=== PATIENT | male | born 1940 | race Caucasian/White ===

== ENCOUNTER → 2018-09-28 10:57 | Outpatient (CLI) | payer MEDICARE, OTHER, SELFPAY ==
--- NOTE | 2018-09-28 11:07 | EKG12_ITS ---
Test Reason : PRE OP Blood Pressure : / mmHG Vent. Rate : 058 BPM Atrial Rate : 058 BPM P-R Int : 196 ms QRS Dur : 128 ms QT Int : 442 ms P-R-T Axes : -22 -63 074 degrees QTc Int : 433 ms Sinus bradycardia Left axis deviation Left ventricular hypertrophy with QRS widening Abnormal ECG Confirmed by ALEJANDRA SANABRIA, LISA ([id number]), electronic news gathering editor SRAVANTHI LEWIS ([id number] on 09/29/2018 1:54:28 PM Referred By: Hallie Andrade Confirmed By:LISA ROBERTS MD
== END ==
PROVIDERS: Family Provider Student in an Organized Health Care Education/Training Program; PCP Student in an Organized Health Care Education/Training Program; Referring Provider Nurse Practitioner Adult Health; Visit Provider Nurse Practitioner Adult Health
DX: Z01.812 Encounter for preprocedural laboratory examination (principal)
CPT/HCPCS: 93005

== ENCOUNTER 2019-07-09 23:25 | Inpatient (IN) | payer MEDICARE, OTHER, SELFPAY ==
[2019-07-09 22:52] VITALS: BMI 29.2
[2019-07-09 22:53] VITALS: BP 159/60; PULSE 59; RESP 18; TEMP 36.5; O2SAT 94
[2019-07-09 23:10] VITALS: BMI 29.2
[2019-07-09] MEDS: Morphine 2 MG/ML Syringe IV (23:34)
[2019-07-09] MEDS: Ondansetron 4 MG/2 ML Vial IV (23:34)
[2019-07-09] MEDS: 0.9% Normal Saline 1,000 ML 100 ML IV (23:35)
[2019-07-10] MEDS: Ketorolac 15 MG/ML Vial IV ×2 (02:23→20:17)
[2019-07-10 04:49] VITALS: BP 148/70; PULSE 77; RESP 16; TEMP 36.8; O2SAT 97
--- NOTE | 2019-07-10 06:00 | EKG12_ITS ---
Test Reason : AM EKG Blood Pressure : / mmHG Vent. Rate : 065 BPM Atrial Rate : 065 BPM P-R Int : 206 ms QRS Dur : 128 ms QT Int : 440 ms P-R-T Axes : 009 -54 076 degrees QTc Int : 457 ms Normal sinus rhythm Left axis deviation Incomplete left bundle branch block Confirmed by ALEJANDRA SANABRIA, LISA ([id number]), restaurant expeditor ALBERTO ROCHE ([id number]) on 07/13/2019 10:12:45 AM Referred By: MIKAYAL Confirmed By:LISA ROBERTS MD
[2019-07-10 06:50] LABS: Absolute Lymphocyte Count 0.85 X10^3/uL (0.83-4.51); Absolute Neutrophil Count 9.9 X10^3/uL (2.0-7.7); Basophil# 0.03 X10^3/uL; Basophil% 0.3 % (0-1); Eosinophil# 0.04 X10^3/uL; Eosinophils% 0.4 % (0-5); Hematocrit 35.2 % (40-54); Hemoglobin 11.4 g/dL (13.0-16.5); Lymphocyte # 0.85 X10^3/ul (4.0); Lymphocyte % 7.5 % (19-41); Mean Corp Hgb Conc 32.4 g/dL (32-36); Mean Corpuscular Hgb 30.4 pg (27.0-32.0); Mean Corpuscular Volume 93.9 fL (80-94); Mean Platelet Vol. 11.3 fl (6.2-12.0); Monocyte# 0.54 X10^3/uL; Monocyte% 4.8 % (0-10); NRBC Flagged by Analyzer 0 % (0-5); Neutrophil # 9.85 X10^3/uL (2.7-7.7); Neutrophil % 86.7 % (47-70); Platelet Count 143 K/mm3 (150-450); RBC Distribution Width CV 13.2 % (11.6-14.6); RBC Distribution Width SD 45.5 fl (35.1-43.9); Red Blood Count 3.75 M/mm3 (4.6-6.2); White Blood Count 11.3 K/mm3 (4.4-11.0)
[2019-07-10 07:12] LABS: Anion Gap 5 (5-15); BUN 24 mg/dL (7-18); BUN/Creat Ratio 13.4 RATIO (10-20); Calcium,Total 8.4 mg/dL (8.5-10.1); Chloride 112 mmol/L (98-107); Creatinine, Serum 1.79 mg/dL (0.70-1.30); EST Glomerular Filtration Rate 39 mL/min (>60); Est Glom Filt Rate - Afr Amer 47 mL/min (>60); Estimated Creatinine Clearance 33.46 ml/min; Glucose 119 mg/dL (74-106); Potassium 4.3 mmol/L (3.5-5.1); Sodium Level 142 mmol/L (136-145)
--- NOTE | 2019-07-10 08:02 | PCM.HP.STD ---
Problem List (1) Kidney stone on right side Status: Acute History of Present Illness Date of Admission: 07/09/19 Chief Complaint: right obstructing kidney stone The patient is a 78 year old male with h/o stone presented with a 9mm righ kidney stone at [facility] admitted for pain control. and nausea and vomiting. Past Medical History Medical History: Medical History (Last Updated 07/10/19 @ 08:12 by Scott Barber MD) Acid reflux disease K21.9 Heart disease I51.9 Hypercholesteremia E78.00 Peripheral vascular disease I73.9 Dr Mas - [facility] TIA (transient ischemic attack) G45.9 Hypertension I10 Allergies No Known Allergies Allergy (Verified 07/09/19 23:08) Home Medications: Ambulatory Orders Medication Instructions Recorded Amlodipine Besylate [Norvasc] 5 mg PO DAILY 07/09/19 Atorvastatin Calcium [Lipitor] 80 mg PO QHS 07/09/19 Carvedilol [Coreg] 3.125 mg PO BID 07/09/19 Cholecalciferol (Vitamin D3) 1 tab PO DAILY 07/09/19 [D3-50] Clopidogrel Bisulfate [Clopidogrel] 75 mg PO DAILY 07/09/19 Fenofibrate,Micronized 130 mg PO QHS 07/09/19 [Fenofibrate] Losartan Potassium [Cozaar] 100 mg PO DAILY 07/09/19 Metoclopramide [Metoclopramide HCl] 5 mg PO BID 07/09/19 Pantoprazole Sodium [Protonix] 40 mg PO DAILY 07/09/19 Ranitidine [Zantac] 150 mg PO DAILY 07/09/19 Tamsulosin HCl [Flomax] 0.4 mg PO 1700 07/09/19 Surgical History: angioplasty - femoral stent, heart stent, carotid surgery x2, cholecystectomy, herniorrhaphy, tonsillectomy, - - lithotripsy Psychiatric History: No pertinent psych hx - vasectomy, circumcision Lives: Spouse/ Significant Other Smoking Status: Current every day smoker Tobacco Use: Non-smoker, Pipe Alcohol: None Drugs: None - *Family History Maternal History Items: Heart Disease Paternal History Items: Heart Disease Review of Systems Constitutional: Denies: Chills, Fever, Weight Change HEENT: Denies: Head Aches, Sinus Congestion, Sinus Drainage Cardiovascular: Denies: Chest Pain, Claudication, Chest Pressure, Chest Tightness Respiratory: Denies: Cough, Hemoptysis, Shortness of Breath Gastrointestinal: Reports: Abdominal Pain, Diarrhea. Denies: Constipation Genitourinary: Reports: Frequency. Denies: Dysuria, Hematuria, Hesitancy, Incontinence, Nocturia, Retention, Urgency Skin: Denies: Rash, Wounds Neurological: Denies: Balance problems, Double vision, Change in Speech, Difficulty swallowing, Seizures Psychiatric: Denies: Anxiety, Depression Hematologic/ Lymphatic: Denies: Adenopathy, Hx of blood clot, Hx of blood transfusion VTE Information - Inpt Only VTE Present on Admission: No VTE Mechan Device Prophylaxis: SCD's Patient Problems: Active and Suspected Problems Kidney stone on right side (Acute) - Physical Exam Vitals/I&O's: Vital Signs Temp Pulse Resp BP Pulse Ox 98.3 F 77 16 148/70 H 97 07/10/19 04:49 07/10/19 04:49 07/10/19 04:49 07/10/19 04:49 07/10/19 04:49 Oxygen Delivery Method Room Air Weight: 89.7 kg Body Mass Index (BMI) 29.2 Intake and Output for Last 24 Hours 07/08/19 07/09/19 07/10/19 23:59 23:59 23:59 Output Total 350 / 350 Balance -350 / -350 General: Alert, Oriented x3 HEENT: Atraumatic Oral: Moist Mucosa Neck: Supple, No JVD, Negative Carotid Bruits Lungs: Clear to auscultation, Normal air movement Cardiovascular: Regular rate, Regular Rhythm Abdomen: Bowel Sounds Present, Soft, Obese Extremities: No clubbing, No cyanosis, No edema Skin: No rashes Musculoskeletal: No Tenderness to Palpation of Joints or Extremities, No Muscle Wasting Neurological: Cranial nerves II-XII grossly intact Psych/Mental Status: Normal Affect Laboratory Results 07/10/19 06:05: WBC 11.3 H, RBC 3.75 L, Hgb 11.4 L, Hct 35.2 L, MCV 93.9, MCH 30.4, MCHC 32.4, RDW Std Deviation 45.5 H, RDW Coeff of He 13.2, Plt Count 143 L, MPV 11.3, Immature Gran % (Auto) 0.300, Neut % (Auto) 86.7 H, Lymph % (Auto) 7.5 L, [place] % (Auto) 4.8, Eos % (Auto) 0.4, Baso % (Auto) 0.3, Absolute Neuts (auto) 9.9 H, Absolute Lymphs (auto) 0.85, Nucleated RBC % 0 07/10/19 06:05: Sodium 142, Potassium 4.3, Chloride 112 H, Carbon Dioxide 25.0, Anion Gap 5, BUN 24 H, Creatinine 1.79 H, Estim Creat Clear Calc 33.46, Est GFR (MDRD) Af Amer 47 L, Est GFR (MDRD) Non-Af 39 L, BUN/Creatinine Ratio 13.4, Glucose 119 H, Calcium 8.4 L Current Medications Amlodipine Besylate (Norvasc) 5 mg PO DAILY [facility] Atorvastatin Calcium (Lipitor) 80 mg PO QHS [facility] Carvedilol (Coreg) 3.125 mg PO BID [facility] Famotidine (Pepcid) 20 mg PO DAILY [facility] Fenofibrate (Tricor) 145 mg PO QHS [facility] Sodium Chloride () 1,000 mls @ 100 mls/hr IV .Q10H [facility] Last Admin: 07/09/19 23:35 Dose: 100 mls/hr Documented by: Ketorolac Tromethamine (Toradol) 15 mg IV Q6H PRN PRN Stop: 07/14/19 23:22 Last Admin: 07/10/19 02:23 Dose: 15 mg Documented by: Losartan Potassium (Cozaar) 100 mg PO DAILY [facility] Metoclopramide HCl (Metoclopramide Hcl) 5 mg PO BID [facility] Morphine Sulfate () 2 mg IV Q2H PRN PRN Last Admin: 07/09/19 23:34 Dose: 2 mg Documented by: Non-Formulary Medication (Cholecalciferol (Vitamin D3) [D3-50]) 1 tab PO DAILY [facility] Ondansetron HCl (Zofran) 4 mg IV Q6H PRN PRN PRN Reason: NAUSEA Last Admin: 07/09/19 23:34 Dose: 4 mg Documented by: Pantoprazole Sodium (Protonix) 40 mg PO DAILY [facility] Tamsulosin HCl (Flomax) 0.4 mg PO 1700 [facility] Assessment/Plan All Active Problems Kidney stone on right side (Acute) 78 yo male with multiple medical problems. at admitted for pain control. plan for stent on right side. then discharge to home plan for outpatient lithotripsy once off plavix for 7 days.
[2019-07-10] MEDS: Morphine 4 MG/ML Syringe IV ×2 (08:30→18:39)
[2019-07-10] MEDS: amLODIPine 5 MG Tablet PO (08:37)
[2019-07-10] MEDS: Metoclopramide 5 MG TABLET PO ×2 (08:38→22:23)
[2019-07-10] MEDS: Famotidine 20 MG Tablet PO (08:38)
[2019-07-10] MEDS: Pantoprazole Sodium 40 MG Tablet PO (08:38)
[2019-07-10] MEDS: Carvedilol 3.125 MG TABLET PO ×2 (08:39→20:32)
[2019-07-10] MEDS: Losartan Potassium 100 MG Tablet PO (08:41)
[2019-07-10 08:47] VITALS: BP 173/68; PULSE 106; RESP 20; TEMP 37; O2SAT 93
[2019-07-10] MEDS: HYDROcodone Bitartrate/Apap 5/325 Tablet PO ×2 (09:38→15:39)
[2019-07-10] MEDS: 0.9% Normal Saline 1,000 ML 100 ML IV ×2 (09:38→18:42)
[2019-07-10 15:36] VITALS: BP 185/82; PULSE 91; RESP 18; TEMP 37.1; O2SAT 92
[2019-07-10 17:04] VITALS: BP 155/52; PULSE 81
[2019-07-10] MEDS: Tamsulosin HCl 0.4 MG Capsule PO (17:05)
[2019-07-10] MEDS: CLARIFY ORDER 1 EACH NOTE (17:06)
[2019-07-10 20:38] VITALS: BP 170/70; PULSE 87; RESP 16; TEMP 37.3; O2SAT 95
[2019-07-10 20:40] VITALS: O2SAT 95
[2019-07-10] MEDS: Fenofibrate 145 MG Tablet PO (22:23)
[2019-07-10] MEDS: Atorvastatin Calcium 80 MG Tablet PO (22:23)
[2019-07-11] VITALS (15 sets, daily range): BP systolic 134–209; BP diastolic 52–97; PULSE 57–119; RESP 16–24; TEMP 36.3–38.8; O2SAT 90–97; BMI 29.2
[2019-07-11] MEDS: HYDROcodone Bitartrate/Apap 5/325 Tablet PO (02:19)
[2019-07-11] MEDS: 0.9% Normal Saline 1,000 ML 100 ML IV ×2 (04:15→15:02)
[2019-07-11] MEDS: 0.9% Saline Lock 10 ML Syringe IV ×3 (08:36→10:24)
[2019-07-11] MEDS: Losartan Potassium 100 MG Tablet PO (10:00)
--- NOTE | 2019-07-11 10:00 | CASEMGMT ---
RN CM Face to Face with patient for initial transition planning/care coordination assessment. RN CM introduced self and role at [facility]. Patient sitting in chair, alert and oriented, significant other at bedside. Patient willing to participate in assessment and is able to answer all questions appropriately. Care providers, pharmacy, and demographics verified. Patient wishes to discharge home, denies need for home health at this time. Patient states he has no further needs or concerns at this time. CM to follow for discharge planning needs that may arise. PCP: Jose Specialists: Newton, bankruptcy attorney, Betty; Eve, GI Surgeon; Chace, cardiovascular; Preferred Pharmacy: [facility] Insurance: [facility] Prescription Benefit: yes Living Will/HPOA: yes, daughter Crystal Bender LNOK: daughter, hayde other Living Arrangements: Patient lives with significant other in multi story home, patient is able to ambulate stairs, independent at home. Transportation: self, significant other DME/HHC: Patient denies any DME or previous HHC Disposition Plan: Patient to discharge home with family support and follow-up plans in place. Adele FAUSTN, RN, CM
[2019-07-11] MEDS: Ketorolac 15 MG/ML Vial IV (10:23)
[2019-07-11] MEDS: Pantoprazole Sodium 40 MG Tablet PO (11:09)
[2019-07-11] MEDS: amLODIPine 5 MG Tablet PO (11:09)
[2019-07-11] MEDS: Famotidine 20 MG Tablet PO (11:09)
--- NOTE | 2019-07-11 11:52 | PCM.DC ---
- Discharge Diagnoses Current Active Problems: Current Active and Chronic Problems (Last Updated 07/10/19 @ 08:13 by Scott Barber MD) Kidney stone on right side (Acute) Heart disease (Acute) Dr Glez - [facility] Reason(s) for Visit for Discharge Instructions: s/p laser of right kidney stone and stent You will use the following diet at home:: Regular Your food should be the consistency of: Regular Discharge Activity: Return to Normal Activity, May not drive while taking narcotic pain medications. Call your doctor if you observe: Fever of 101 or Higher Allergies/Adverse Reactions: Allergies No Known Allergies Allergy (Verified 07/09/19 23:08) Medications to take at Discharge Amlodipine Besylate [Norvasc] 5 mg PO DAILY 07/09/19 Atorvastatin Calcium [Lipitor] 80 mg PO QHS 07/09/19 Carvedilol [Coreg (Beta Grant)] 3.125 mg PO BID 07/09/19 Cholecalciferol (Vitamin D3) [D3-50] 1 tab PO DAILY 07/09/19 Clopidogrel Bisulfate [Clopidogrel] 75 mg PO DAILY 07/09/19 Fenofibrate,Micronized [Fenofibrate] 130 mg PO QHS 07/09/19 Losartan Potassium [Cozaar] 100 mg PO DAILY 07/09/19 Metoclopramide [Metoclopramide HCl] 5 mg PO BID 07/09/19 Pantoprazole Sodium [Protonix] 40 mg PO DAILY 07/09/19 Ranitidine [Zantac] 150 mg PO DAILY 07/09/19 Tamsulosin HCl [Flomax] 0.4 mg PO 1700 07/09/19 Ciprofloxacin [Cipro] 500 mg PO BID #6 tab 07/11/19 Hydrocodone/Acetaminophen [Douglas 5-325 Tablet] 1 ea PO Q4H PRN PRN #14 tab 07/11/19 Primary Care Physician: Curt Garcia MD [Primary Care Provider] - Test Results: Test results from this visit will be discussed in further detail at your follow-up appointment, if applicable. Please Follow Up With: Scott Barber MD - Nurse practicioner When: Next week with Nurse Practicioner to remove stent
[2019-07-11] MEDS: Lactated Ringers 1,000 ML 100 ML IV (12:01)
--- NOTE | 2019-07-11 12:48 | PCM.OPRPT ---
Problem List (1) Kidney stone on right side Status: Acute Report of Operation Date of Procedure: 07/11/19 Pre-Operative Diagnosis: Right obstructing kidney stone Post-Operative Diagnosis: Same Surgery/Procedure Performed:: Cystoscopy, balloon dilation of the right ureter, retrograde pyelogram, interpretation fluoroscopic images, right ureteroscopy laser of stone and right stent placement. Description of Surgical Findings:: 78-year-old male taken back to the operating room at the smooth induction of general anesthesia he was placed supine on the table, went into the bladder with a 21 Eritrean rigid cystourethroscope, entire length urethra is normal sphincter was intact verumontanum was normal the prostate was normal, I then identified the trigone no tumors or stones are seen within the bladder, I then identified the right ureteral orifice cannulated this with a Glidewire advance a wire up into the kidney it was a 0.035 stiff body Glidewire. I then over the guidewire advanced a 10 cm x 10 E[place]an balloon dilator for the ureter, I then dilated the distal ureter. After doing this I left the wire in place backloaded the scope and the balloon dilator off the wire and then over the wire I went in with the flexible ureteroscope was able to get into the ureter quite easily went up into the kidney went up to the UPJ area with a stone was seen on CAT scan it was already pushed back went further up in the kidney and encountered significant amount of debris I pulled out the debris from the scope using the syringe and sent this off for culture it does look like debris did look like infection. Culture was sent off just to confirm no infection. I then inspected the kidney performed a retrograde pyelogram and interpreted fluoroscopic images and then identified some fragments in the lower pole of the right kidney these were lasered in the low pieces, and then identified a large fragment in the upper pole the right kidney and this was lasered into little tiny pieces. We used a 200 ?m laser fiber the laser settings for most of the case were 0.2 J and 16 Hz or 18 Hz. After the stones were laser little tiny pieces up to the wires to the scope backloaded the scope over the wire where it went way down the ureter no injury or trauma perforation of the ureter, and then over the wire advanced a stent stent went up into the kidney and coiled in the kidney and bladder good position pulled the wire and then drained the bladder with the cystoscope. Left a long string on the stent so the stent could be removed easily in about a week. Type of Anesthesia:: General Drains: stent right side - Admit VTE Documentation VTE Present on Admission: No VTE Mechan Device Prophylaxis: SCD's
--- NOTE | 2019-07-11 14:26 | EKG12_ITS ---
Test Reason : ARRYTH Blood Pressure : / mmHG Vent. Rate : 098 BPM Atrial Rate : 098 BPM P-R Int : 216 ms QRS Dur : 128 ms QT Int : 364 ms P-R-T Axes : 079 -53 085 degrees QTc Int : 464 ms Sinus rhythm with 1st degree A-V block with frequent Premature ventricular complexes Left axis deviation Non-specific intra-ventricular conduction block Abnormal ECG Confirmed by ALEJANDRA SANABRIA, LISA ([id number]), film and video editor SRAVANTHI LEWIS ([id number]) on 07/18/2019 1:16:39 PM Referred By: MIKAYLA Confirmed By:LISA ROBERTS MD
[2019-07-11] MEDS: Metoclopramide 5 MG TABLET PO (15:38)
[2019-07-11] MEDS: Carvedilol 3.125 MG TABLET PO (15:38)
[2019-07-11] MEDS: Tamsulosin HCl 0.4 MG Capsule PO (17:32)
[2019-07-11] MEDS: Ciprofloxacin 500 MG Tablet PO (17:45)
== END 2019-07-11 17:55 | disposition home or self-care (01) | DRG 661 ==
PROVIDERS: Anesthesiology; Admitting Provider Urology; Family Provider Student in an Organized Health Care Education/Training Program; PCP Student in an Organized Health Care Education/Training Program; Visit Provider Urology
PROC: 0TJ98ZZ Inspection of Ureter, Via Natural or Artificial Opening Endoscopic (ICD-10-PCS; CPT 52352; principal; 2019-07-11 07:20)
DX: N20.0 Calculus of kidney (principal); E78.00 Pure hypercholesterolemia, unspecified; I10 Essential (primary) hypertension; I73.9 Peripheral vascular disease, unspecified; K21.9 Gastro-esophageal reflux disease without esophagitis; I51.9 Heart disease, unspecified; Z86.73 Personal history of transient ischemic attack (TIA), and cerebral infarction without residual deficits
CPT/HCPCS: 36415; 76000; 80048; 85025; 87077; 87086; 87088; 87186; 93005; J7030; J7120; A4216; C1769; C2617; J2405

== ENCOUNTER 2019-09-28 14:17 | Inpatient (IN) | payer MEDICARE, OTHER, SELFPAY ==
[2019-07-11 11:13] VITALS: BMI 29.2
[2019-09-28] VITALS (7 sets, daily range): BP systolic 120–157; BP diastolic 52–62; PULSE 68–96; RESP 16–21; TEMP 36.2–36.6; O2SAT 96–99; BMI 27.6
--- NOTE | 2019-09-28 14:28 | PCM.HP.STD ---
Problem List (1) Coronary artery disease Status: Chronic (2) Acute kidney injury on CKD stage III Status: Acute (3) Acute gastroenteritis Status: Acute (4) Kidney stone on right side Status: Chronic (5) Heart disease Status: Chronic Comment: Dr Newton Hernández History of Present Illness Date of Admission: 09/28/19 Chief Complaint: Diarrhea, acute kidney injury The patient is a 79 year old M with history of coronary artery disease status post PCI stent last one in 2010 and kidney stone is being admitted directly in PCU from [place] [facility] for acute kidney injury. Patient is having diarrhea started about Thursday about 5 days ago, liquid watery consistency every 2-3 hours as per the patient. Patient denies any abdominal pain or cramps. No nausea or vomiting. Patient also had low-grade fever as per the 5 days ago. Denies food poisoning. Patient has anuria; he did not pass urine for about 2 days He was last admitted in June 2019 for right obstructive ureteric stone and had balloon dilatation of right ureter, right ureteroscopy laser of stone and right stent placement. Patient Cipro for 5 days during that [] Patient did not had coronary related event since 2010 and denies any admission for heart failure, chest pain or pneumonia. In [place] ER his blood pressure was low in triage 87/35 which came up 111/67/61. Heart rate 70/min no hypoxia. EKG shows normal sinus rhythm at 73 bpm with left axis deviation nonspecific intraventricular block. Lab work shows sodium 138, K4.3, chloride 108, bicarb 18, glucose 108, BUN/creatinine 79/5.98, calcium 9.0. H&H 13.7/41, platelet count 222. Chest x-ray 2 views shows no acute cardiopulmonary disease. Tiny 3 mm nodular density in the right upper lobe most likely calcified granuloma. Past Medical History Past Medical History (Chronic Problems): Chronic Problems (Last Updated 07/10/19 @ 08:13 by Scott Barber MD) Kidney stone on right side (Chronic) Coronary artery disease (Chronic) Heart disease (Chronic) Dr Newton Hernández Medical History: Medical History (Last Updated 07/10/19 @ 08:13 by Scott Barber MD) Heart disease (Acute) I51.9 Dr Newton Hernández Acid reflux disease K21.9 Hypercholesteremia E78.00 Peripheral vascular disease I73.9 Dr Mas - [facility] TIA (transient ischemic attack) G45.9 Hypertension I10 Allergies No Known Allergies Allergy (Verified 07/09/19 23:08) Home Medications: Ambulatory Orders Medication Instructions Recorded Amlodipine Besylate [Norvasc] 5 mg PO DAILY 07/09/19 Atorvastatin Calcium [Lipitor] 80 mg PO QHS 07/09/19 Carvedilol [Coreg (Beta Grant)] 3.125 mg PO BID 07/09/19 Clopidogrel Bisulfate [Clopidogrel] 75 mg PO DAILY 07/09/19 Fenofibrate,Micronized 130 mg PO QHS 07/09/19 [Fenofibrate] Losartan Potassium [Cozaar] 100 mg PO DAILY 07/09/19 Metoclopramide [Metoclopramide HCl] 5 mg PO BID 07/09/19 Pantoprazole Sodium [Protonix] 40 mg PO DAILY 07/09/19 Ranitidine [Zantac] 150 mg PO DAILY 07/09/19 Tamsulosin HCl [Flomax] 0.4 mg PO 1700 07/09/19 Cholecalciferol (VIT D3) [Vitamin 1,000 unit PO DAILY 07/11/19 D] Surgical History: angioplasty - femoral stent, heart stent, carotid surgery x2, cholecystectomy, herniorrhaphy, tonsillectomy, - - lithotripsy Psychiatric History: No pertinent psych hx - vasectomy, circumcision Smoking Status: Current every day smoker - *Family History Maternal History Items: Heart Disease Paternal History Items: Heart Disease Review of Systems Constitutional: Reports: Anorexia, Chills, Fever, Weakness, Fatigue HEENT: Denies: Head Aches, Sinus Congestion, Sinus Drainage Cardiovascular: Denies: Chest Pain, Palpitations Respiratory: Denies: Cough, Shortness of breath at rest, Sputum production Gastrointestinal: Reports: Diarrhea, Nausea. Denies: Abdominal Pain, Hematemesis, Hematochezia, Vomiting Genitourinary: Reports: - - Anuria; he did not pass urine for about 2 days. Denies: Dysuria, Frequency Musculoskeletal: Denies: Joint Pain, Joint Tenderness Skin: Denies: Rash, Wounds Neurological: Denies: Numbness, Tingling, Focal weakness Psychiatric: Denies: Anxiety, Depression, Homicidal Ideations, Suicidal Ideations Hematologic/ Lymphatic: Denies: Easy Bruising, Easy Bleeding VTE Information - Inpt Only VTE Present on Admission: No VTE Mechan Device Prophylaxis: None VTE Pharm Prophylaxis ordered?: Yes Patient Problems: Active and Suspected Problems (Last Updated 07/10/19 @ 08:13 by Scott Barber MD) Acute kidney injury on CKD stage III (Acute) Acute gastroenteritis (Acute) - Physical Exam Vitals/I&O's: Body Mass Index (BMI) 29.2 General: Alert, Oriented x3, Cooperative HEENT: Atraumatic, PERRLA, EOMI, Normocephalic Neck: Supple, No JVD, Negative Carotid Bruits Lungs: Clear to auscultation, Normal air movement, No rhonchi, No wheeze, No rales Cardiovascular: Regular rate, Regular Rhythm, Normal S1, Normal S2, No murmurs Abdomen: Bowel Sounds Present, Soft, Non Tender, Non-Distended Extremities: No edema, Capillary Refill Less than 3 Seconds Skin: No rashes, No breakdown Musculoskeletal: No Tenderness to Palpation of Joints or Extremities, Arthritic Changes Neurological: Cranial nerves II-XII grossly intact, Deep Tendon Reflexes 2+/4 and Symmetrical, Neuro grossly intact Psych/Mental Status: Normal Affect, Appropriate Assessment/Plan All Active Problems (Last Updated 07/10/19 @ 08:13 by Scott Barber MD) Acute kidney injury on CKD stage III (Acute) Acute gastroenteritis (Acute) The patient is a 79 year old M with history of coronary artery disease status post PCI stent last one in 2010 and kidney stone is being admitted directly in PCU from [place] ER for acute kidney injury. Patient is having diarrhea started about Thursday about 5 days ago, liquid watery consistency every 2-3 hours as per the patient. Patient also had low-grade fever as per the 5 days ago. [] In [place] ER his blood pressure was low in triage 87/35 which came up 111/67/61. Heart rate 70/min no hypoxia. EKG shows normal sinus rhythm at 73 bpm with left axis deviation nonspecific intraventricular block. Lab work shows sodium 138, K4.3, chloride 108, bicarb 18, glucose 108, BUN/creatinine 79/5.98, calcium 9.0. H&H 13.7/41, platelet count 222. Chest x-ray 2 views shows no acute cardiopulmonary disease. Tiny 3 mm nodular density in the right upper lobe most likely calcified granuloma. 1. Acute kidney injury on CKD stage III most likely prerenal but suspicion of ATN: Patient is being admitted in PCU. Patient's prior BUN/creatinine was 22/1.45 in July 09, 2019 and 24/1.79 on July 10. With the staff scientist Dr. Vieyra. IV fluid half normal saline with bicarb 150 M EQ at 150 mils per hour. Insert Anders catheter for accurate intake and output. UA, urine culture and urine lites ordered. Kidney and bladder ultrasound ordered. Daily electrolytes and kidney function monitoring. Nephrotoxic medications including losartan and Zantac held. Discussed with the pharmacist for dose adjustment. 2. Acute gastroenteritis, exact etiology unclear: Enteric bacteriology panel, stool for C. difficile, stool for occult blood and WBC ordered. IV fluid resuscitation. Patient does not have abdominal pain or tenderness. 3. Coronary artery disease status post stents: Patient home medications Plavix, Coreg, statin, atorvastatin and amlodipine continued. Dose of atorvastatin decreased. 4. History of nephrolithiasis/ureteric stone: He was last admitted in June 2019 for right obstructive ureteric stone and had balloon dilatation of right ureter, right ureteroscopy laser of stone and right stent placement. Cipro for 5 days during that. DVT prophylaxis on heparin 5000 subcutaneous twice daily. Advanced directive/CODE STATUS/living will: Patient stated he has living will. When different options were discussed with patient and his including full code, DNR CC arrest and DNR CC, he knows he is DNR CC arrest. Patient does not want artificial life support including intubation, tube feed, ventilator and/chest compression. Total time spent in [id number] encounter in discussion of advanced directive 18 minutes. Code Visit Inpatient E&M: 31460 Init Hosp L3 Procedures: 50859 Advncd Care Plan 30 Min
--- NOTE | 2019-09-28 14:49 | US_ITS ---
HISTORY: Acute kidney injury. Anuria. 90 images. No comparison images. Findings: The right kidney measures 10.3 x 5.4 x 4.6 cm. Cortex is measured at 13 mm in thickness. Cortical contour is slightly irregular. Color Doppler imaging demonstrates normal flow to right renal parenchyma. There is no hydronephrosis or nephrolithiasis. Within the superior portion of the right kidney there is an anechoic structure with well-defined margins that measures 2 x 1.8 x 2 cm, consistent with a benign simple cyst. More inferiorly there is another anechoic structure with well-defined margins measuring 9 x 9 x 10 mm, consistent with a benign simple cyst. The left kidney measures 12.7 x 5.6 x 5.7 cm. These measurements exclude a large exophytic cyst of the left kidney. Color Doppler imaging demonstrates flow to the left renal parenchyma. The cortex is 14 mm thick. This cyst exophytic to the left kidney measures 16.6 x 10.5 cm. Another benign cyst to the left kidney measures 3.1 x 2.8 x 2.9 cm. The urinary bladder is not demonstrated. US/Kidney and Bladder IMPRESSION: Hyperechoic renal parenchyma with irregular contours suggestive of nonspecific medical renal disease. Examples of medical renal disease includes chronic ischemic nephropathy, type 2 diabetes, and NSAID abuse. No hydronephrosis. Bilateral renal cysts. The largest of these, exophytic into the left kidney, measures over 16 cm in long axis dimensions at 2013 Reported and signed by: Butch Ritter MD Electronically Signed: Butch Ritter MD at 20:12 EST Tel , Service support ,
[2019-09-28 15:06] LABS: Bacteria 0 SEEN /hpf (None Seen); Mucous, Urine 0 SEEN /hpf (<or=2+); Red Blood Cells-Urine 0 SEEN /hpf (0-5); Squamous Epithelial Cells - UA 0 SEEN /hpf (0-5)
[2019-09-28 15:28] LABS: Color, Urine Yellow (Yellow); Glucose, Dipstick Normal (Normal); Ketone-Dipstick 5 mg/dl (Negative); Leukocyte Esterase-Dipstick 500 /ul (Negative); Nitrite-Dipstick Negative (Negative); Occult Blood-Urine 25 /ul (Negative); Protein-Dipstick 30 mg/dl (Negative); Specific Gravity, Urine 1.025 (1.002-1.030); Urine Clarity Clear (Clear); Urine Urobilinogen Normal (Normal)
[2019-09-28 15:30] LABS: Urine Chloride < 10 mmol/L (Not Establ.); Urine Sodium 20 mmol/L (Not Establ.)
[2019-09-28 15:35] LABS: Bedside Glucose 80 mg/dL (70-110)
[2019-09-28 15:40] LABS: International Normalized Ratio 1.2
[2019-09-28 15:42] LABS: Urine Bilirubin Dipstick 6 mg/dL (Negative)
[2019-09-28 15:48] LABS: ALB/GLOB Ratio 0.8 RATIO (0.9-2.4); AST(SGOT) 8 U/L (15-37); Alanine Aminotransfer ALT/SGPT 15 U/L (16-61); Alkaline Phosphatase 38 U/L (45-117); Anion Gap 9 (5-15); BUN 81 mg/dL (7-18); BUN/Creat Ratio 13.6 RATIO (10-20); Calcium,Total 8.5 mg/dL (8.5-10.1); Chloride 113 mmol/L (98-107); Creatinine, Serum 5.94 mg/dL (0.70-1.30); EST Glomerular Filtration Rate 10 mL/min (>60); Est Glom Filt Rate - Afr Amer 12 mL/min (>60); Estimated Creatinine Clearance 9.92 ml/min; Globulin 3.8 g/dL (2.2-4.2); Glucose 88 mg/dL (74-106); Magnesium 1.5 mg/dL (1.6-2.6); Potassium 4.3 mmol/L (3.5-5.1); Protein, Total 6.8 g/dL (6.4-8.2); Sodium Level 138 mmol/L (136-145)
[2019-09-28 16:11] LABS: Lactic Acid 1.1 mmol/L (0.4-1.9)
[2019-09-28 16:19] LABS: Protein, Urine (Random) 95.9 mg/dL (<11.9); Protein:Creat Ratio 236 mg/g CRE (0-200)
[2019-09-28 16:45] LABS: Hyaline Cast 25-50 SEEN /lpf (0-5); White Blood Cells 10-25 SEEN /hpf (0-5)
[2019-09-28] MEDS: Tamsulosin HCl 0.4 MG Capsule PO (17:09)
[2019-09-28 19:12] LABS: Phosphorus 4.6 mg/dL (2.5-4.9)
[2019-09-28] MEDS: Heparin Injection (Vial) 5,000 UNIT/ML VIAL 5000 UNIT SC (20:13)
[2019-09-28] MEDS: Atorvastatin Calcium 40 MG Tablet PO (20:15)
[2019-09-28] MEDS: Carvedilol 3.125 MG TABLET PO (20:18)
[2019-09-28 21:01] LABS: Bedside Glucose 111 mg/dL (70-110)
[2019-09-29] VITALS (12 sets, daily range): BP systolic 121–134; BP diastolic 45–71; PULSE 64–101; RESP 14–18; TEMP 36.4–37; O2SAT 94–98
[2019-09-29 04:24] LABS: Absolute Lymphocyte Count 1.63 X10^3/uL (0.83-4.51); Absolute Neutrophil Count 4.6 X10^3/uL (2.0-7.7); Eosinophil# 0.21 X10^3/uL; Hematocrit 31.1 % (40-54); Hemoglobin 10.5 g/dL (13.0-16.5); Lymphocyte # 1.63 X10^3/ul (4.0); Lymphocyte % 22.9 % (19-41); Mean Corp Hgb Conc 33.8 g/dL (32-36); Mean Corpuscular Hgb 30.3 pg (27.0-32.0); Mean Corpuscular Volume 89.9 fL (80-94); Mean Platelet Vol. 11.5 fl (6.2-12.0); Monocyte# 0.61 X10^3/uL; Monocyte% 8.6 % (0-10); NRBC Flagged by Analyzer 0 % (0-5); Neutrophil # 4.64 X10^3/uL (2.7-7.7); Neutrophil % 65.2 % (47-70); Platelet Count 153 K/mm3 (150-450); RBC Distribution Width CV 13.3 % (11.6-14.6); Red Blood Count 3.46 M/mm3 (4.6-6.2); White Blood Count 7.1 K/mm3 (4.4-11.0)
[2019-09-29 04:52] LABS: Anion Gap 7 (5-15); BUN 87 mg/dL (7-18); BUN/Creat Ratio 17.5 RATIO (10-20); Calcium,Total 8.1 mg/dL (8.5-10.1); Chloride 109 mmol/L (98-107); Creatinine, Serum 4.98 mg/dL (0.70-1.30); EST Glomerular Filtration Rate 12 mL/min (>60); Est Glom Filt Rate - Afr Amer 15 mL/min (>60); Estimated Creatinine Clearance 11.83 ml/min; Glucose 99 mg/dL (74-106); Magnesium 1.7 mg/dL (1.6-2.6); Potassium 3.6 mmol/L (3.5-5.1); Sodium Level 140 mmol/L (136-145); Thyroid Stim Hormone (TSH) 0.48 uIU/mL (0.358-3.74)
[2019-09-29] MEDS: 0.9% Saline Lock 10 ML Syringe IV (05:52)
[2019-09-29 06:36] LABS: Bedside Glucose 89 mg/dL (70-110)
[2019-09-29] MEDS: 0.9% Normal Saline 1,000 ML 100 ML IV ×2 (07:25→17:14)
[2019-09-29] MEDS: Heparin Injection (Vial) 5,000 UNIT/ML VIAL 5000 UNIT SC ×2 (07:56→21:59)
[2019-09-29] MEDS: amLODIPine 5 MG Tablet PO (07:57)
[2019-09-29] MEDS: Pantoprazole Sodium 40 MG Tablet PO (07:57)
[2019-09-29] MEDS: Carvedilol 3.125 MG TABLET PO ×2 (07:57→21:59)
[2019-09-29] MEDS: Clopidogrel Bisulfate 75 MG Tablet PO (07:57)
--- NOTE | 2019-09-29 08:16 | PCM.PN.HOSP ---
Patient Problems: Active and Suspected Problems (Last Updated 07/10/19 @ 08:13 by Scott Barber MD) Acute kidney injury on CKD stage III (Acute) Acute gastroenteritis (Acute) Reason for Visit: Acute kidney injury. Patient also has multiple PVCs. Has history of coronary artery disease status post 2 stents Objective: Patient started to make urine. Total urine output 700 mL since admission; 400 mL since 12 AM. Patient diarrhea is also improved and had 2 bowel movements since admission. Telemetry shows multiple PVCs and one incidence of 3 beats of NSVT. Vitals/I&O's: Vital Signs Temp Pulse Resp BP Pulse Ox 97.6 F L 101 H 18 134/71 H 95 09/29/19 03:01 09/29/19 07:43 09/29/19 03:01 09/29/19 03:01 09/29/19 03:01 Oxygen Delivery Method Room Air Weight: 191 lb 12.835 oz Body Mass Index (BMI) 27.6 Intake and Output for Last 24 Hours 09/27/19 09/28/19 09/29/19 23:59 23:59 23:59 Intake Total 1771.5 / 1771.5 1220 / 1220 Output Total 705 / 705 400 / 400 Balance 1066.5 / 1066.5 820 / 820 General: Alert, Oriented x3, Cooperative HEENT: Atraumatic, PERRLA, EOMI, Normocephalic Neck: Supple, No JVD, Negative Carotid Bruits Lungs: Clear to auscultation, No rhonchi - Air entry slightly diminished in bilateral lung bases., No wheeze, No rales, Diminished, - Cardiovascular: Regular rate, Regular Rhythm, Normal S1, Normal S2, No murmurs, - - Multiple PVCs on diagnostic cardiac sonographer Abdomen: Bowel Sounds Present, Soft, Non Tender, Non-Distended Extremities: No edema, Capillary Refill Less than 3 Seconds Skin: No rashes, No breakdown Musculoskeletal: No Tenderness to Palpation of Joints or Extremities, Arthritic Changes Neurological: Cranial nerves II-XII grossly intact, Deep Tendon Reflexes 2+/4 and Symmetrical, Neuro grossly intact Psych/Mental Status: Normal Affect, Appropriate Microbiology Past 72 Hours 09/28/19 20:50 Stool C. difficile DNA Amplification - Final 09/28/19 20:50 Stool Stool Occult Blood (NORMA) - Final 09/28/19 20:50 Stool Stool Lactoferrin - Final Laboratory Results 09/28/19 14:50: Urine Creatinine 416.00 09/28/19 14:50: U Random Total Protein 95.9 H, Urine Creatinine 407.00, Protein/Creatinin Ratio 236 H 09/28/19 14:50: Ur Random Sodium 20, Urine Potassium 53.0, Urine Chloride < 10 09/28/19 14:50: Urine Color Yellow, Urine Clarity Clear, Urine pH 5.0, Ur Specific Brooks 1.025, Urine Protein 30 H, Urine Glucose (UA) Normal, Urine Ketones 5 H, Urine Occult Blood 25 H, Urine Nitrite Negative, Urine Bilirubin 6 H, Urine Urobilinogen Normal, Ur Leukocyte Esterase 500 H, Urine RBC 0 SEEN, Urine WBC 10-25 SEEN, Ur Squamous Epith Cells 0 SEEN, Urine Bacteria 0 SEEN, Hyaline Casts 25-50 SEEN, Urine Mucus 0 SEEN 09/28/19 15:05: Sodium 138, Potassium 4.3, Chloride 113 H, Carbon Dioxide 16.0 L, Anion Gap 9, BUN 81 H, Creatinine 5.94 H, Estim Creat Clear Calc 9.92, Est GFR (MDRD) Af Amer 12 L, Est GFR (MDRD) Non-Af 10 L, BUN/Creatinine Ratio 13.6, Glucose 88, Calcium 8.5, Magnesium 1.5 L, Total Bilirubin 0.50, AST 8 L, ALT 15 L, Alkaline Phosphatase 38 L, Total Protein 6.8, Albumin 3.0 L, Globulin 3.8, Albumin/Globulin Ratio 0.8 L 09/28/19 15:05: Lactic Acid 1.1 09/28/19 15:05: PT 15.0 H, INR 1.2 09/28/19 15:05: Phosphorus 4.6 09/28/19 15:29: POC Glucose 80 09/28/19 20:24: POC Glucose 111 H 09/29/19 04:10: Sodium 140, Potassium 3.6, Chloride 109 H, Carbon Dioxide 24.0, Anion Gap 7, BUN 87 H, Creatinine 4.98 H, Estim Creat Clear Calc 11.83, Est GFR (MDRD) Af Amer 15 L, Est GFR (MDRD) Non-Af 12 L, BUN/Creatinine Ratio 17.5, Glucose 99, Calcium 8.1 L, Magnesium 1.7, TSH 0.48 09/29/19 04:10: WBC 7.1, RBC 3.46 L, Hgb 10.5 L, Hct 31.1 L, MCV 89.9, MCH 30.3, MCHC 33.8, RDW Std Deviation 44.0 H, RDW Coeff of He 13.3, Plt Count 153, MPV 11.5, Immature Gran % (Auto) 0.300, Neut % (Auto) 65.2, Lymph % (Auto) 22.9, [place] % (Auto) 8.6, Eos % (Auto) 3.0, Baso % (Auto) 0.0, Absolute Neuts (auto) 4.6, Absolute Lymphs (auto) 1.63, Nucleated RBC % 0 09/29/19 06:31: POC Glucose 89 Current Medications Acetaminophen (Tylenol) 650 mg PO Q6H PRN PRN PRN Reason: Pain Score 1-3/Temp > 100.7 F Albuterol Sulfate (Ventolin Aerosols) 2.5 mg INHALATION Q2H PRN PRN PRN Reason: SOB/Wheezing Amlodipine Besylate (Norvasc) 5 mg PO DAILY [facility] Last Admin: 09/29/19 07:57 Dose: 5 mg Documented by: Atorvastatin Calcium (Lipitor) 40 mg PO QHS [facility] Last Admin: 09/28/19 20:15 Dose: 40 mg Documented by: Carvedilol (Coreg) 3.125 mg PO BID [facility] Last Admin: 09/29/19 07:57 Dose: 3.125 mg Documented by: Cholecalciferol (Vitamin D) 1,000 unit PO DAILYCM [facility] Last Admin: 09/29/19 07:58 Dose: 1,000 unit Documented by: Clopidogrel Bisulfate (Plavix) 75 mg PO DAILY [facility] Last Admin: 09/29/19 07:57 Dose: 75 mg Documented by: Glucagon () 1 mg IM .X1 PRN PRN Reason: Hypoglycemia Heparin Sodium (Porcine) (Heparin Na) 5,000 unit SC Q12 [facility] Last Admin: 09/29/19 07:56 Dose: 5,000 unit Documented by: Dextrose (Dextrose 10%-Water) 250 mls @ 999 mls/hr IV .Q16M PRN; Protocol PRN Reason: HYPOGLYCEMIA Sodium Chloride () 1,000 mls @ 100 mls/hr IV .Q10H [facility] Last Admin: 09/29/19 07:25 Dose: 100 mls/hr Documented by: Morphine Sulfate () 2 mg IV Q3H PRN PRN PRN Reason: Pain Score 4-10/10 Nitroglycerin (Nitrostat) 0.4 mg SUBLINGUAL Q5M PRN PRN Reason: CARDIAC/CHEST PAIN Nutritional Formula (Lactose Free) (Ensure Enlive) 120 ml PO 4X/DAY [facility] Last Admin: 09/29/19 07:56 Dose: 120 ml Documented by: Ondansetron HCl (Zofran) 4 mg IV Q8H PRN PRN PRN Reason: NAUSEA/VOMITING Pantoprazole Sodium (Protonix) 40 mg PO DAILY [facility] Last Admin: 09/29/19 07:57 Dose: 40 mg Documented by: Senna/Docusate Sodium (Senokot-S, Sara-Colace) 2 tablet PO BID PRN PRN Reason: Constipation Sodium Chloride () 10 - 40 ml IV UD PRN PRN Reason: SALINE FLUSH Last Admin: 09/29/19 05:52 Dose: 10 ml Documented by: Tamsulosin HCl (Flomax) 0.4 mg PO 1730 [facility] Last Admin: 09/28/19 17:09 Dose: 0.4 mg Documented by: STROKE Vital Signs/Narrative: Vital Signs Pulse 09/29/19 07:43 101 H Medical Necessity - Tobacco Use Smoking Status: Current every day smoker Tobacco Use: Pipe Assessment/Plan All Active Problems (Last Updated 07/10/19 @ 08:13 by Scott Barber MD) Acute kidney injury on CKD stage III (Acute) Acute gastroenteritis (Acute) The patient is a 79 year old M with history of coronary artery disease status post PCI stent last one in 2010 and kidney stone is being admitted directly in PCU from [place] [facility] for acute kidney injury. Patient is having diarrhea started about Thursday about 5 days ago, liquid watery consistency every 2-3 hours as per the patient. Patient also had low-grade fever as per the 5 days ago. [] In [place] [facility] his blood pressure was low in triage 87/35 which came up 111/67/61. Heart rate 70/min no hypoxia. EKG shows normal sinus rhythm at 73 bpm with left axis deviation nonspecific intraventricular block. Lab work shows sodium 138, K4.3, chloride 108, bicarb 18, glucose 108, BUN/creatinine 79/5.98, calcium 9.0. H&H 13.7/41, platelet count 222. Chest x-ray 2 views shows no acute cardiopulmonary disease. Tiny 3 mm nodular density in the right upper lobe most likely calcified granuloma. 1. Acute kidney injury, stage III on CKD stage III most likely prerenal but suspicion of ATN: Patient is being admitted in PCU. Patient's prior BUN/creatinine was 22/1.45 in July 09, 2019 and 24/1.79 on July 10. With the mill crane operator Dr. Vieyra. IV fluid half normal saline with bicarb 150 M EQ at 150 mils per hour. Insert Anders catheter for accurate intake and output. UA, urine culture and urine lites ordered. Kidney and bladder ultrasound ordered. Daily electrolytes and kidney function monitoring. Nephrotoxic medications including losartan and Zantac held. Discussed with the pharmacist for dose adjustment. 09/29/2019: Patient had total urine output about 700 mL. Dark urine in Anders catheter. Labs reviewed. UA shows WBC 10-25 cells, RBC 0, bacteria 0 LE 500, nitrite negative. Urine culture is pending. Urine lites urine protein 96, Fena 0.2%. Urine sodium 20, chloride less than 10. BUN/creatinine improved to 87/4.9. Bicarb 24, sodium 140, K3.6. Hypomagnesemia was corrected. Repeat magnesium 1.7. IV fluid changed from bicarb drip to normal saline at 100 mL/h. Monitor intake and output. Radio Personality going to see the patient. Patient does not have lower urinary tract symptoms of burning micturition/increased frequency urgency. No need for antibiotic. Wait for urine culture. CPK ordered. Renal ultrasound shows hyperechoic renal parenchyma with irregular contour suggestive of nonspecific medical renal disease. No hydronephrosis. Bilateral renal cyst. Largest exophytic cyst about 16 cm in left kidney. 2. Acute gastroenteritis, exact etiology unclear: Enteric bacteriology panel, stool for C. difficile, stool for occult blood and WBC ordered. IV fluid resuscitation. Patient does not have abdominal pain or tenderness. 09/29/2019: Patient still has bowel movement is more formed and solid. C. difficile is negative. Stool for occult blood negative. Lactoferrin is positive. Enteric bacteriology panel is pending. 3. Coronary artery disease status post stents: Patient home medications Plavix, Coreg, statin, atorvastatin and amlodipine continued. Dose of atorvastatin decreased. 4. Arrhythmia: Patient has multiple PVCs and one 3 beats of NSVT. 2D echo ordered. Obtain previous echo and other cardiac work-up from patient's reducing salon attendant Dr. Glez. 4. History of nephrolithiasis/ureteric stone: He was last admitted in June 2019 for right obstructive ureteric stone and had balloon dilatation of right ureter, right ureteroscopy laser of stone and right stent placement. Cipro for 5 days during that. DVT prophylaxis on heparin 5000 subcutaneous twice daily. Advanced directive/CODE STATUS/living will: Patient stated he has living will. When different options were discussed with patient and his including full code, DNR CC arrest and DNR CC, he knows he is DNR CC arrest. Patient does not want artificial life support including intubation, tube feed, ventilator and/chest compression. Clinical Impression(s) from Imaging Studies Renal Ultrasound 09/28/19 14:49 IMPRESSION: Hyperechoic renal parenchyma with irregular contours suggestive of nonspecific medical renal disease. Examples of medical renal disease includes chronic ischemic nephropathy, type 2 diabetes, and NSAID abuse. No hydronephrosis. Bilateral renal cysts. The largest of these, exophytic into the left kidney, measures over 16 cm in long axis dimensions Microbiology Past 72 Hours 09/28/19 20:50 Stool C. difficile DNA Amplification - Final 09/28/19 20:50 Stool Stool Occult Blood (NORMA) - Final 09/28/19 20:50 Stool Stool Lactoferrin - Final Laboratory Results 09/28/19 14:50: Urine Creatinine 416.00 09/28/19 14:50: U Random Total Protein 95.9 H, Urine Creatinine 407.00, Protein/Creatinin Ratio 236 H 09/28/19 14:50: Ur Random Sodium 20, Urine Potassium 53.0, Urine Chloride < 10 09/28/19 14:50: Urine Color Yellow, Urine Clarity Clear, Urine pH 5.0, Ur Specific Brooks 1.025, Urine Protein 30 H, Urine Glucose (UA) Normal, Urine Ketones 5 H, Urine Occult Blood 25 H, Urine Nitrite Negative, Urine Bilirubin 6 H, Urine Urobilinogen Normal, Ur Leukocyte Esterase 500 H, Urine RBC 0 SEEN, Urine WBC 10-25 SEEN, Ur Squamous Epith Cells 0 SEEN, Urine Bacteria 0 SEEN, Hyaline Casts 25-50 SEEN, Urine Mucus 0 SEEN 09/28/19 15:05: Sodium 138, Potassium 4.3, Chloride 113 H, Carbon Dioxide 16.0 L, Anion Gap 9, BUN 81 H, Creatinine 5.94 H, Estim Creat Clear Calc 9.92, Est GFR (MDRD) Af Amer 12 L, Est GFR (MDRD) Non-Af 10 L, BUN/Creatinine Ratio 13.6, Glucose 88, Calcium 8.5, Magnesium 1.5 L, Total Bilirubin 0.50, AST 8 L, ALT 15 L, Alkaline Phosphatase 38 L, Total Protein 6.8, Albumin 3.0 L, Globulin 3.8, Albumin/Globulin Ratio 0.8 L 09/28/19 15:05: Lactic Acid 1.1 09/28/19 15:05: PT 15.0 H, INR 1.2 09/28/19 15:05: Phosphorus 4.6 09/28/19 15:29: POC Glucose 80 09/28/19 20:24: POC Glucose 111 H 09/29/19 04:10: Sodium 140, Potassium 3.6, Chloride 109 H, Carbon Dioxide 24.0, Anion Gap 7, BUN 87 H, Creatinine 4.98 H, Estim Creat Clear Calc 11.83, Est GFR (MDRD) Af Amer 15 L, Est GFR (MDRD) Non-Af 12 L, BUN/Creatinine Ratio 17.5, Glucose 99, Calcium 8.1 L, Magnesium 1.7, TSH 0.48 09/29/19 04:10: WBC 7.1, RBC 3.46 L, Hgb 10.5 L, Hct 31.1 L, MCV 89.9, MCH 30.3, MCHC 33.8, RDW Std Deviation 44.0 H, RDW Coeff of He 13.3, Plt Count 153, MPV 11.5, Immature Gran % (Auto) 0.300, Neut % (Auto) 65.2, Lymph % (Auto) 22.9, [place] % (Auto) 8.6, Eos % (Auto) 3.0, Baso % (Auto) 0.0, Absolute Neuts (auto) 4.6, Absolute Lymphs (auto) 1.63, Nucleated RBC % 0 09/29/19 06:31: POC Glucose 89 Code Visit Inpatient E&M: 45804 Subs Hosp L3
--- NOTE | 2019-09-29 08:44 | ECHOCS_ITS ---
Reason For Study: PVC's, NSVT Procedure This was a 2D Doppler, Color Flow transthoracic echocardiogram. The study was technically difficult. Exam performed portable in ICU/CCU. Left Ventricle Normal LV size. The estimated ejection fraction is 65 %. Normal diastology for age. No regional wall motion abnormalities noted. Right Ventricle Normal right ventricle. Normal systolic function. Atria Normal left atrium. Normal right atrium. No doppler evidence for ASD. Mitral Valve There is no mitral valve stenosis. No mitral valve insufficiency. Tricuspid Valve There is no tricuspid stenosis. Trivial tricuspid valve insufficiency. Pulmonary artery systolic pressure is 35 mmHg. Aortic Valve Aortic sclerosis, no stenosis. Trisinus/trileaflet aortic valve. There is no aortic stenosis. No aortic valve insufficiency. Pulmonic Valve There is no pulmonic valvular stenosis. No pulmonic valve insufficiency. Great Vessels Normal aortic root. Pericardium/Pleural No pericardial effusion. Medication Diluted definity 2ml given slow IV push to enhance endocardial definition. MMode/2D Measurements & Calculations LVIDd: 3.4 cm IVSd: 1.3 cm Ao root diam: 3.8 cm LVIDs: 2.9 cm LVPWd: 1.3 cm RVDd: 3.7 cm FS: 13.5 % LAV(MOD-bp): 53.2 ml LA A4 area: 20.8 cm2 LA dimension(2D): 3.6 cm LAV(MOD-bp) Indexed: 26.3 ml/m2 LAV(MOD-sp2): 52.5 ml LAV(MOD-sp4): 57.2 ml RA A4 area: 16.1 cm2 Doppler Measurements & Calculations MV E max jerome: 87.0 cm/sec Lat Peak E' Jerome: 11.5 cm/sec Med Peak E' Jerome: 6.8 cm/sec MV A max jerome: 97.1 cm/sec E/E' lat: 7.6 E/E' med: 12.8 MV E/A: 0.90 Ao V2 max: 150.7 cm/sec LV V1 max: 105.6 cm/sec PA V2 max: 96.1 cm/sec Ao max P.3 mmHg LV V1 max P.9 mmHg TR max jerome: 259.7 cm/sec TR max P.2 mmHg Interpretation Summary The estimated ejection fraction is 65 %. Normal diastology for age. Trivial tricuspid valve insufficiency. Ordering Physician: Kunal Castillo Referring Physician: Kunal Castillo Performed By: Diana Pool RDCS
[2019-09-29 10:57] LABS: CPK Total, Creatine Kinase 39 U/L (39-308)
--- NOTE | 2019-09-29 12:20 | CASEMGMT ---
SW met w/pt in room, reviewed prior level of function and discharge plan. PCP: Dr. Garcia Specialists: Cardiology: Dr. Glez, GI surgeon Dr. Prado, Cardiovascular Dr. Mas, Urologist Dr. Barber Preferred Pharmacy: [facility] in [place] Insurance/Prescription Benefit: Medicare/ for Life LW/POA: Pt states has documents, daughter is POA(Crystal Bendre) LNOK: Daughter Crystal and significant other Giselle Ortiz Prior living arrangements/level of function: Pt lives in a multi story home with Giselle, independent w/ADL's, drives, can get up and down stairs. DME/HHC: No DME, no history of home health care Plan: Home, no homegoing needs are anticipated. SW/CM remains available should any needs arise. KAE Tomlin
[2019-09-29] MEDS: Ceftriaxone 1 GM/50 ML BAG IV (13:54)
--- NOTE | 2019-09-29 14:07 | PCM.CONS.R ---
Consultation - Renal PCP/ Referring MD: Requesting physician: [] Primary care physician: Curt Garcia MD Reason for Consultation:: maki - History of Present Illness History of Present Illness: The patient is a 79 year old M with past medical history of coronary artery disease s/p PCI with stent and nephrolithiasis who was admitted yesterday from [facility] with a creatinine of 5.9. The patient has had diarrhea for about 5 days prior to admission starting on Thursday every 2 hours day and night liquid watery green in color but not bloody. He denies any abdominal pain or cramps he had only one episode of vomiting and some nausea but he could keep some fluids down. He also had some low-grade fever as per 5 days ago. There is no history of eating out or food poisoning and other friends or members of the family. There is a history of right obstructive ureteric stone with balloon dilation of the right ureter and ureteroscopy laser of stone and right stent placement in June last year. The patient denies any history of heart failure admissions for pulmonary edema. In [place] [facility] his initial blood pressure was in the 80s over 30s which improved to 110 over 60s with IV fluid resuscitation. His initial creatinine was 5.9 with a potassium of 4.3. Chest x-ray initially did not show any pulmonary edema showed some calcified granuloma. The patient denies ever seeing a outreach consultant before. He denies dysuria hematuria. A Anders catheter was placed and now is draining urine. Apparently initially patient was anuric for 12 to 24 hours. He denies chest pain shortness of breath headache skin rashes abdominal pain hematemesis hemoptysis. - Allergies Allergies: Allergies No Known Allergies Allergy (Verified 07/09/19 23:08) - Current Medications Current Medications: Current Medications Acetaminophen (Tylenol) 650 mg PO Q6H PRN PRN PRN Reason: Pain Score 1-3/Temp > 100.7 F Albuterol Sulfate (Ventolin Aerosols) 2.5 mg INHALATION Q2H PRN PRN PRN Reason: SOB/Wheezing Amlodipine Besylate (Norvasc) 5 mg PO DAILY [facility] Last Admin: 09/29/19 07:57 Dose: 5 mg Documented by: Atorvastatin Calcium (Lipitor) 40 mg PO QHS [facility] Last Admin: 09/28/19 20:15 Dose: 40 mg Documented by: Carvedilol (Coreg) 3.125 mg PO BID [facility] Last Admin: 09/29/19 07:57 Dose: 3.125 mg Documented by: Cholecalciferol (Vitamin D) 1,000 unit PO DAILYCM [facility] Last Admin: 09/29/19 07:58 Dose: 1,000 unit Documented by: Clopidogrel Bisulfate (Plavix) 75 mg PO DAILY [facility] Last Admin: 09/29/19 07:57 Dose: 75 mg Documented by: Glucagon () 1 mg IM .X1 PRN PRN Reason: Hypoglycemia Heparin Sodium (Porcine) (Heparin Na) 5,000 unit SC Q12 [facility] Last Admin: 09/29/19 07:56 Dose: 5,000 unit Documented by: Dextrose (Dextrose 10%-Water) 250 mls @ 999 mls/hr IV .Q16M PRN; Protocol PRN Reason: HYPOGLYCEMIA Sodium Chloride () 1,000 mls @ 100 mls/hr IV .Q10H [facility] Last Infusion: 09/29/19 13:54 Dose: 0 mls/hr Documented by: Ceftriaxone Sodium (Rocephin) 1 gm in 50 mls @ 100 mls/hr IV Q24 [facility] Last Admin: 09/29/19 13:54 Dose: 100 mls/hr Documented by: Morphine Sulfate () 2 mg IV Q3H PRN PRN PRN Reason: Pain Score 4-10/10 Nitroglycerin (Nitrostat) 0.4 mg SUBLINGUAL Q5M PRN PRN Reason: CARDIAC/CHEST PAIN Nutritional Formula (Lactose Free) (Ensure Enlive) 120 ml PO 4X/DAY [facility] Last Admin: 09/29/19 13:55 Dose: Not Given Documented by: Ondansetron HCl (Zofran) 4 mg IV Q8H PRN PRN PRN Reason: NAUSEA/VOMITING Pantoprazole Sodium (Protonix) 40 mg PO DAILY [facility] Last Admin: 09/29/19 07:57 Dose: 40 mg Documented by: Senna/Docusate Sodium (Senokot-S, Sara-Colace) 2 tablet PO BID PRN PRN Reason: Constipation Sodium Chloride () 10 - 40 ml IV UD PRN PRN Reason: SALINE FLUSH Last Admin: 09/29/19 05:52 Dose: 10 ml Documented by: Tamsulosin HCl (Flomax) 0.4 mg PO 1730 [facility] Last Admin: 09/28/19 17:09 Dose: 0.4 mg Documented by: - Past Medical History Past Medical History (Chronic Problems): Chronic Problems (Last Updated 07/10/19 @ 08:13 by Scott Barber MD) Kidney stone on right side (Chronic) Coronary artery disease (Chronic) Heart disease (Chronic) Dr Glez - yulisa Hernández - Past Surgical History Surgical History: angioplasty - femoral stent, heart stent, carotid surgery x2, cholecystectomy, herniorrhaphy, tonsillectomy, - - lithotripsy - Social History Smoking Status: Current every day smoker - Family History Maternal History Items: Heart Disease Paternal History Items: Heart Disease Review of Systems Constitutional: Reports: Anorexia. Denies: Chills, Fever, Weight Change HEENT: Denies: Head Aches, Sinus Congestion, Sinus Drainage Cardiovascular: Reports: Palpitations. Denies: Chest Pain Respiratory: Denies: Cough, Shortness of breath at rest, Sputum production Gastrointestinal: Reports: Diarrhea - ROS is otherwise negative unless noted in the history of present illness. Denies: Abdominal Pain, Nausea, Vomiting Genitourinary: Denies: Dysuria Musculoskeletal: Denies: Joint Pain, Joint Tenderness Skin: Denies: Rash, Wounds Neurological: Denies: Numbness, Tingling, Focal weakness Psychiatric: Denies: Anxiety, Depression, Homicidal Ideations, Suicidal Ideations Hematologic/ Lymphatic: Denies: Easy Bruising, Easy Bleeding Patient Problems: Active and Suspected Problems (Last Updated 07/10/19 @ 08:13 by Scott Barber MD) Acute kidney injury on CKD stage III (Acute) Acute gastroenteritis (Acute) - Physical Exam Vitals/I&O's: Vital Signs Temp Pulse Resp BP Pulse Ox 98.5 F 68 17 122/62 H 98 09/29/19 13:57 09/29/19 13:57 09/29/19 13:57 09/29/19 13:57 09/29/19 13:57 Oxygen Delivery Method Room Air Weight: 87 kg Body Mass Index (BMI) 27.6 Intake and Output for Last 24 Hours 09/27/19 09/28/19 09/29/19 23:59 23:59 23:59 Intake Total 1771.5 / 1771.5 2348.33 / 2348.33 Output Total 705 / 705 400 / 400 Balance 1066.5 / 1066.5 1948.33 / 194.33 General: Alert, Oriented x3, Cooperative HEENT: Atraumatic, PERRLA, EOMI, Normocephalic Neck: Supple, No JVD, Negative Carotid Bruits Lungs: Clear to auscultation, Normal air movement Cardiovascular: Regular rate, No murmurs Abdomen: Bowel Sounds Present, Soft, Non Tender Extremities: No edema, Capillary Refill Less than 3 Seconds Skin: No rashes, No breakdown Musculoskeletal: No Tenderness to Palpation of Joints or Extremities Neurological: Cranial nerves II-XII grossly intact Psych/Mental Status: Normal Affect, Appropriate Microbiology Past 72 Hours 09/28/19 14:50 Urine Catheter - Catheter Urine Culture - Preliminary Beta hemolytic organism 09/28/19 20:50 Stool Enteric Bacteriology - Final 09/28/19 20:50 Stool C. difficile DNA Amplification - Final 09/28/19 20:50 Stool Stool Occult Blood (NORMA) - Final 09/28/19 20:50 Stool Stool Lactoferrin - Final Laboratory Results 09/28/19 14:50: Urine Creatinine 416.00 09/28/19 14:50: U Random Total Protein 95.9 H, Urine Creatinine 407.00, Protein/Creatinin Ratio 236 H 09/28/19 14:50: Ur Random Sodium 20, Urine Potassium 53.0, Urine Chloride < 10 09/28/19 14:50: Urine Color Yellow, Urine Clarity Clear, Urine pH 5.0, Ur Specific [place] 1.025, Urine Protein 30 H, Urine Glucose (UA) Normal, Urine Ketones 5 H, Urine Occult Blood 25 H, Urine Nitrite Negative, Urine Bilirubin 6 H, Urine Urobilinogen Normal, Ur Leukocyte Esterase 500 H, Urine RBC 0 SEEN, Urine WBC 10-25 SEEN, Ur Squamous Epith Cells 0 SEEN, Urine Bacteria 0 SEEN, Hyaline Casts 25-50 SEEN, Urine Mucus 0 SEEN 09/28/19 15:05: Sodium 138, Potassium 4.3, Chloride 113 H, Carbon Dioxide 16.0 L, Anion Gap 9, BUN 81 H, Creatinine 5.94 H, Estim Creat Clear Calc 9.92, Est GFR (MDRD) Af Amer 12 L, Est GFR (MDRD) Non-Af 10 L, BUN/Creatinine Ratio 13.6, Glucose 88, Calcium 8.5, Magnesium 1.5 L, Total Bilirubin 0.50, AST 8 L, ALT 15 L, Alkaline Phosphatase 38 L, Total Protein 6.8, Albumin 3.0 L, Globulin 3.8, Albumin/Globulin Ratio 0.8 L 09/28/19 15:05: Lactic Acid 1.1 09/28/19 15:05: PT 15.0 H, INR 1.2 09/28/19 15:05: Phosphorus 4.6 09/28/19 15:29: POC Glucose 80 09/28/19 20:24: POC Glucose 111 H 09/29/19 04:10: Sodium 140, Potassium 3.6, Chloride 109 H, Carbon Dioxide 24.0, Anion Gap 7, BUN 87 H, Creatinine 4.98 H, Estim Creat Clear Calc 11.83, Est GFR (MDRD) Af Amer 15 L, Est GFR (MDRD) Non-Af 12 L, BUN/Creatinine Ratio 17.5, Glucose 99, Calcium 8.1 L, Magnesium 1.7, TSH 0.48 09/29/19 04:10: WBC 7.1, RBC 3.46 L, Hgb 10.5 L, Hct 31.1 L, MCV 89.9, MCH 30.3, MCHC 33.8, RDW Std Deviation 44.0 H, RDW Coeff of He 13.3, Plt Count 153, MPV 11.5, Immature Gran % (Auto) 0.300, Neut % (Auto) 65.2, Lymph % (Auto) 22.9, [place] % (Auto) 8.6, Eos % (Auto) 3.0, Baso % (Auto) 0.0, Absolute Neuts (auto) 4.6, Absolute Lymphs (auto) 1.63, Nucleated RBC % 0 09/29/19 04:10: Total Creatine Kinase 39 09/29/19 06:31: POC Glucose 89 Current Medications Acetaminophen (Tylenol) 650 mg PO Q6H PRN PRN PRN Reason: Pain Score 1-3/Temp > 100.7 F Albuterol Sulfate (Ventolin Aerosols) 2.5 mg INHALATION Q2H PRN PRN PRN Reason: SOB/Wheezing Amlodipine Besylate (Norvasc) 5 mg PO DAILY [facility] Last Admin: 09/29/19 07:57 Dose: 5 mg Documented by: Atorvastatin Calcium (Lipitor) 40 mg PO QHS [facility] Last Admin: 09/28/19 20:15 Dose: 40 mg Documented by: Carvedilol (Coreg) 3.125 mg PO BID [facility] Last Admin: 09/29/19 07:57 Dose: 3.125 mg Documented by: Cholecalciferol (Vitamin D) 1,000 unit PO DAILYCM [facility] Last Admin: 09/29/19 07:58 Dose: 1,000 unit Documented by: Clopidogrel Bisulfate (Plavix) 75 mg PO DAILY [facility] Last Admin: 09/29/19 07:57 Dose: 75 mg Documented by: Glucagon () 1 mg IM .X1 PRN PRN Reason: Hypoglycemia Heparin Sodium (Porcine) (Heparin Na) 5,000 unit SC Q12 [facility] Last Admin: 09/29/19 07:56 Dose: 5,000 unit Documented by: Dextrose (Dextrose 10%-Water) 250 mls @ 999 mls/hr IV .Q16M PRN; Protocol PRN Reason: HYPOGLYCEMIA Sodium Chloride () 1,000 mls @ 100 mls/hr IV .Q10H [facility] Last Infusion: 09/29/19 13:54 Dose: 0 mls/hr Documented by: Ceftriaxone Sodium (Rocephin) 1 gm in 50 mls @ 100 mls/hr IV Q24 [facility] Last Admin: 09/29/19 13:54 Dose: 100 mls/hr Documented by: Morphine Sulfate () 2 mg IV Q3H PRN PRN PRN Reason: Pain Score 4-10/10 Nitroglycerin (Nitrostat) 0.4 mg SUBLINGUAL Q5M PRN PRN Reason: CARDIAC/CHEST PAIN Nutritional Formula (Lactose Free) (Ensure Enlive) 120 ml PO 4X/DAY [facility] Last Admin: 09/29/19 13:55 Dose: Not Given Documented by: Ondansetron HCl (Zofran) 4 mg IV Q8H PRN PRN PRN Reason: NAUSEA/VOMITING Pantoprazole Sodium (Protonix) 40 mg PO DAILY [facility] Last Admin: 09/29/19 07:57 Dose: 40 mg Documented by: Senna/Docusate Sodium (Senokot-S, Sara-Colace) 2 tablet PO BID PRN PRN Reason: Constipation Sodium Chloride () 10 - 40 ml IV UD PRN PRN Reason: SALINE FLUSH Last Admin: 09/29/19 05:52 Dose: 10 ml Documented by: Tamsulosin HCl (Flomax) 0.4 mg PO 1730 [facility] Last Admin: 09/28/19 17:09 Dose: 0.4 mg Documented by: Assessment/Plan All Active Problems (Last Updated 07/10/19 @ 08:13 by Scott Barber MD) Acute kidney injury on CKD stage III (Acute) Acute gastroenteritis (Acute) MAKI KDIGO stage III - prerenal/ATN CKD 3 previous baseline 1.79 HTN Renal cysts bilaterally Metabolic acidosis resolved Diarrhea Hypotension resolved History of coronary artery disease s/p PCI with stent Continue IV fluids - agree with changing to normal saline as the metabolic acidosis resolved we can add later on bicarb if is low again. Follow-up urine culture abx per primary Ultrasound was reviewed bp ok on CCB Avoid nephrotoxins d/w dr. Castillo Above assessment and plan was discussed at length with the patient who voiced understanding and agrees to proceed with the plan as outlined above. He was given the opportunity to ask questions and stated that those were answered to his satisfaction. Thank you very much for allowing me to participate in the care of this patient. Please do not hesitate to call if you have any questions or concerns.
[2019-09-29] MEDS: Tamsulosin HCl 0.4 MG Capsule PO (17:15)
[2019-09-29] MEDS: Atorvastatin Calcium 40 MG Tablet PO (21:59)
[2019-09-30] VITALS (10 sets, daily range): BP systolic 121–146; BP diastolic 38–85; PULSE 64–87; RESP 16–18; TEMP 36.6–36.7; O2SAT 94–98
[2019-09-30] MEDS: 0.9% Normal Saline 1,000 ML 100 ML IV ×2 (01:29→12:29)
[2019-09-30 06:53] LABS: Absolute Lymphocyte Count 1.28 X10^3/uL (0.83-4.51); Absolute Neutrophil Count 4.3 X10^3/uL (2.0-7.7); Basophil# 0.01 X10^3/uL; Basophil% 0.2 % (0-1); Eosinophil# 0.23 X10^3/uL; Eosinophils% 3.6 % (0-5); Hemoglobin 10.6 g/dL (13.0-16.5); Lymphocyte # 1.28 X10^3/ul (4.0); Lymphocyte % 20.1 % (19-41); Mean Corp Hgb Conc 33.1 g/dL (32-36); Mean Corpuscular Hgb 29.9 pg (27.0-32.0); Mean Corpuscular Volume 90.1 fL (80-94); Mean Platelet Vol. 11.5 fl (6.2-12.0); Monocyte# 0.48 X10^3/uL; Monocyte% 7.5 % (0-10); NRBC Flagged by Analyzer 0 % (0-5); Neutrophil # 4.33 X10^3/uL (2.7-7.7); Neutrophil % 68.1 % (47-70); Platelet Count 154 K/mm3 (150-450); RBC Distribution Width CV 13.2 % (11.6-14.6); RBC Distribution Width SD 44.1 fl (35.1-43.9); Red Blood Count 3.55 M/mm3 (4.6-6.2); White Blood Count 6.4 K/mm3 (4.4-11.0)
[2019-09-30 07:13] LABS: Anion Gap 6 (5-15); BUN 64 mg/dL (7-18); BUN/Creat Ratio 20.6 RATIO (10-20); Calcium,Total 8.5 mg/dL (8.5-10.1); Chloride 116 mmol/L (98-107); Creatinine, Serum 3.11 mg/dL (0.70-1.30); EST Glomerular Filtration Rate 21 mL/min (>60); Est Glom Filt Rate - Afr Amer 25 mL/min (>60); Estimated Creatinine Clearance 18.94 ml/min; Glucose 108 mg/dL (74-106); Potassium 3.7 mmol/L (3.5-5.1); Sodium Level 145 mmol/L (136-145)
[2019-09-30] MEDS: Pantoprazole Sodium 40 MG Tablet PO (09:49)
[2019-09-30] MEDS: amLODIPine 5 MG Tablet PO (09:50)
[2019-09-30] MEDS: Clopidogrel Bisulfate 75 MG Tablet PO (09:50)
[2019-09-30] MEDS: Carvedilol 3.125 MG TABLET PO ×2 (09:50→22:48)
[2019-09-30] MEDS: Ceftriaxone 1 GM/50 ML BAG IV (09:54)
[2019-09-30] MEDS: Heparin Injection (Vial) 5,000 UNIT/ML VIAL 5000 UNIT SC ×2 (09:55→22:49)
--- NOTE | 2019-09-30 11:37 | PCM.PROGNOTE ---
Patient Problems: Active and Suspected Problems (Last Updated 07/10/19 @ 08:13 by Scott Barber MD) Acute kidney injury on CKD stage III (Acute) Acute gastroenteritis (Acute) Subjective: no sob/cp he has no complaints today - Physical Exam Vitals/I&O's: Vital Signs Temp Pulse Resp BP Pulse Ox 97.8 F 76 18 121/43 H 98 09/30/19 10:00 09/30/19 11:01 09/30/19 10:00 09/30/19 10:00 09/30/19 10:00 Oxygen Delivery Method Room Air Weight: 87 kg Body Mass Index (BMI) 27.6 Intake and Output for Last 24 Hours 09/28/19 09/29/19 09/30/19 23:59 23:59 23:59 Intake Total 1771.5 / 1771.5 4014.99 / 4014.99 401.67 / 401.67 Output Total 705 / 705 1600 / 2500 1450 / 1450 Balance 1066.5 / 1066.5 2414.99 / 1514.99 -1048.33 / -1048.33 General: Alert, Oriented x3, Cooperative HEENT: Atraumatic, PERRLA, EOMI, Normocephalic Neck: Supple, No JVD, Negative Carotid Bruits Lungs: Clear to auscultation, Normal air movement Cardiovascular: Regular rate, No murmurs Abdomen: Bowel Sounds Present, Soft, Non Tender Extremities: No edema, Capillary Refill Less than 3 Seconds Skin: No rashes, No breakdown Musculoskeletal: No Tenderness to Palpation of Joints or Extremities Neurological: Cranial nerves II-XII grossly intact Psych/Mental Status: Normal Affect, Appropriate Microbiology Past 72 Hours 09/28/19 14:50 Urine Catheter - Catheter Urine Culture - Preliminary Staphylococcus aureus 09/28/19 20:50 Stool Enteric Bacteriology - Final 09/28/19 20:50 Stool C. difficile DNA Amplification - Final 09/28/19 20:50 Stool Stool Occult Blood (NORMA) - Final 09/28/19 20:50 Stool Stool Lactoferrin - Final Laboratory Results 09/30/19 06:23: WBC 6.4, RBC 3.55 L, Hgb 10.6 L, Hct 32.0 L, MCV 90.1, MCH 29.9, MCHC 33.1, RDW Std Deviation 44.1 H, RDW Coeff of He 13.2, Plt Count 154, MPV 11.5, Immature Gran % (Auto) 0.500, Neut % (Auto) 68.1, Lymph % (Auto) 20.1, [place] % (Auto) 7.5, Eos % (Auto) 3.6, Baso % (Auto) 0.2, Absolute Neuts (auto) 4.3, Absolute Lymphs (auto) 1.28, Nucleated RBC % 0 09/30/19 06:23: Sodium 145, Potassium 3.7, Chloride 116 H, Carbon Dioxide 23.0, Anion Gap 6, BUN 64 H, Creatinine 3.11 H, Estim Creat Clear Calc 18.94, Est GFR (MDRD) Af Amer 25 L, Est GFR (MDRD) Non-Af 21 L, BUN/Creatinine Ratio 20.6 H, Glucose 108 H, Calcium 8.5 Current Medications Acetaminophen (Tylenol) 650 mg PO Q6H PRN PRN PRN Reason: Pain Score 1-3/Temp > 100.7 F Albuterol Sulfate (Ventolin Aerosols) 2.5 mg INHALATION Q2H PRN PRN PRN Reason: SOB/Wheezing Amlodipine Besylate (Norvasc) 5 mg PO DAILY [facility] Last Admin: 09/30/19 09:50 Dose: 5 mg Documented by: Atorvastatin Calcium (Lipitor) 40 mg PO QHS [facility] Last Admin: 09/29/19 21:59 Dose: 40 mg Documented by: Carvedilol (Coreg) 3.125 mg PO BID [facility] Last Admin: 09/30/19 09:50 Dose: 3.125 mg Documented by: Cholecalciferol (Vitamin D) 1,000 unit PO DAILYCM [facility] Last Admin: 09/30/19 09:49 Dose: 1,000 unit Documented by: Clopidogrel Bisulfate (Plavix) 75 mg PO DAILY [facility] Last Admin: 09/30/19 09:50 Dose: 75 mg Documented by: Glucagon () 1 mg IM .X1 PRN PRN Reason: Hypoglycemia Heparin Sodium (Porcine) (Heparin Na) 5,000 unit SC Q12 [facility] Last Admin: 09/30/19 09:55 Dose: 5,000 unit Documented by: Dextrose (Dextrose 10%-Water) 250 mls @ 999 mls/hr IV .Q16M PRN; Protocol PRN Reason: HYPOGLYCEMIA Sodium Chloride () 1,000 mls @ 75 mls/hr IV .[id number] [facility] Last Admin: 09/30/19 01:29 Dose: 100 mls/hr Documented by: Cefazolin Sodium () 1 gm in 50 mls @ 100 mls/hr IV Q8 [facility] Morphine Sulfate () 2 mg IV Q3H PRN PRN PRN Reason: Pain Score 4-10/10 Nitroglycerin (Nitrostat) 0.4 mg SUBLINGUAL Q5M PRN PRN Reason: CARDIAC/CHEST PAIN Nutritional Formula (Lactose Free) (Ensure Enlive) 120 ml PO 4X/DAY [facility] Last Admin: 09/30/19 09:54 Dose: 120 ml Documented by: Ondansetron HCl (Zofran) 4 mg IV Q8H PRN PRN PRN Reason: NAUSEA/VOMITING Pantoprazole Sodium (Protonix) 40 mg PO DAILY [facility] Last Admin: 09/30/19 09:49 Dose: 40 mg Documented by: Senna/Docusate Sodium (Senokot-S, Sara-Colace) 2 tablet PO BID PRN PRN Reason: Constipation Sodium Chloride () 10 - 40 ml IV UD PRN PRN Reason: SALINE FLUSH Last Admin: 09/29/19 05:52 Dose: 10 ml Documented by: Tamsulosin HCl (Flomax) 0.4 mg PO 1730 [facility] Last Admin: 09/29/19 17:15 Dose: 0.4 mg Documented by: Medical Necessity - Tobacco Use Smoking Status: Current every day smoker Tobacco Use: Pipe Assessment/Plan All Active Problems (Last Updated 07/10/19 @ 08:13 by Scott Barber MD) Acute kidney injury on CKD stage III (Acute) Acute gastroenteritis (Acute) MAKI KDIGO stage III - prerenal/ATN CKD 3 previous baseline 1.79 HTN Renal cysts bilaterally Metabolic acidosis resolved Diarrhea Hypotension resolved History of coronary artery disease s/p PCI with stent Continue IV fluids - Scr much better 3.1 bp ok on CCB Avoid nephrotoxins d/w dr. Castillo
[2019-09-30] MEDS: Cefazolin 1 GM/50 ML BAG IV ×2 (12:28→22:47)
--- NOTE | 2019-09-30 15:37 | PCM.PN.HOSP ---
Patient Problems: Active and Suspected Problems (Last Updated 07/10/19 @ 08:13 by Scott Barber MD) Acute kidney injury on CKD stage III (Acute) Acute gastroenteritis (Acute) Reason for Visit: Patient is overall feeling better. His creatinine is still up. Patient asking to go home but advised to go home tomorrow. His creatinine/kidney function still not on baseline. Vitals/I&O's: Vital Signs Temp Pulse Resp BP Pulse Ox 97.8 F 76 18 121/43 H 98 09/30/19 10:00 09/30/19 11:01 09/30/19 10:00 09/30/19 10:00 09/30/19 10:00 Oxygen Delivery Method Room Air Weight: 191 lb 12.835 oz Body Mass Index (BMI) 27.6 Intake and Output for Last 24 Hours 09/28/19 09/29/19 09/30/19 23:59 23:59 23:59 Intake Total 1771.5 / 1771.5 4014.99 / 4014.99 1451.67 / 1451.67 Output Total 705 / 705 1600 / 2500 2125 / 2125 Balance 1066.5 / 1066.5 2414.99 / 1514.99 -673.33 / -673.33 General: Alert, Oriented x3, Cooperative HEENT: Atraumatic, PERRLA, EOMI, Normocephalic Neck: Supple, No JVD, Negative Carotid Bruits Lungs: Clear to auscultation, Normal air movement, No rhonchi, No wheeze, No rales Cardiovascular: Regular rate, Regular Rhythm, Normal S1, Normal S2, No murmurs Abdomen: Bowel Sounds Present, Soft, Non Tender, Non-Distended Extremities: No edema, Capillary Refill Less than 3 Seconds Skin: No rashes, No breakdown Musculoskeletal: No Tenderness to Palpation of Joints or Extremities, Arthritic Changes Neurological: Cranial nerves II-XII grossly intact, Deep Tendon Reflexes 2+/4 and Symmetrical, Neuro grossly intact Psych/Mental Status: Normal Affect, Appropriate Microbiology Past 72 Hours 09/28/19 14:50 Urine Catheter - Catheter Urine Culture - Preliminary Staphylococcus aureus 09/28/19 20:50 Stool Enteric Bacteriology - Final 09/28/19 20:50 Stool C. difficile DNA Amplification - Final 09/28/19 20:50 Stool Stool Occult Blood (NORMA) - Final 09/28/19 20:50 Stool Stool Lactoferrin - Final Laboratory Results 09/30/19 06:23: WBC 6.4, RBC 3.55 L, Hgb 10.6 L, Hct 32.0 L, MCV 90.1, MCH 29.9, MCHC 33.1, RDW Std Deviation 44.1 H, RDW Coeff of He 13.2, Plt Count 154, MPV 11.5, Immature Gran % (Auto) 0.500, Neut % (Auto) 68.1, Lymph % (Auto) 20.1, Zavala % (Auto) 7.5, Eos % (Auto) 3.6, Baso % (Auto) 0.2, Absolute Neuts (auto) 4.3, Absolute Lymphs (auto) 1.28, Nucleated RBC % 0 09/30/19 06:23: Sodium 145, Potassium 3.7, Chloride 116 H, Carbon Dioxide 23.0, Anion Gap 6, BUN 64 H, Creatinine 3.11 H, Estim Creat Clear Calc 18.94, Est GFR (MDRD) Af Amer 25 L, Est GFR (MDRD) Non-Af 21 L, BUN/Creatinine Ratio 20.6 H, Glucose 108 H, Calcium 8.5 Current Medications Acetaminophen (Tylenol) 650 mg PO Q6H PRN PRN PRN Reason: Pain Score 1-3/Temp > 100.7 F Albuterol Sulfate (Ventolin Aerosols) 2.5 mg INHALATION Q2H PRN PRN PRN Reason: SOB/Wheezing Amlodipine Besylate (Norvasc) 5 mg PO DAILY [facility] Last Admin: 09/30/19 09:50 Dose: 5 mg Documented by: Atorvastatin Calcium (Lipitor) 40 mg PO QHS [facility] Last Admin: 09/29/19 21:59 Dose: 40 mg Documented by: Carvedilol (Coreg) 3.125 mg PO BID [facility] Last Admin: 09/30/19 09:50 Dose: 3.125 mg Documented by: Cholecalciferol (Vitamin D) 1,000 unit PO DAILYCM [facility] Last Admin: 09/30/19 09:49 Dose: 1,000 unit Documented by: Clopidogrel Bisulfate (Plavix) 75 mg PO DAILY [facility] Last Admin: 09/30/19 09:50 Dose: 75 mg Documented by: Glucagon () 1 mg IM .X1 PRN PRN Reason: Hypoglycemia Heparin Sodium (Porcine) (Heparin Na) 5,000 unit SC Q12 [facility] Last Admin: 09/30/19 09:55 Dose: 5,000 unit Documented by: Dextrose (Dextrose 10%-Water) 250 mls @ 999 mls/hr IV .Q16M PRN; Protocol PRN Reason: HYPOGLYCEMIA Sodium Chloride () 1,000 mls @ 75 mls/hr IV .[id number] [facility] Last Admin: 09/30/19 12:29 Dose: 100 mls/hr Documented by: Cefazolin Sodium () 1 gm in 50 mls @ 100 mls/hr IV Q12 [facility] Last Infusion: 09/30/19 13:26 Dose: Infused Documented by: Morphine Sulfate () 2 mg IV Q3H PRN PRN PRN Reason: Pain Score 4-10/10 Nitroglycerin (Nitrostat) 0.4 mg SUBLINGUAL Q5M PRN PRN Reason: CARDIAC/CHEST PAIN Nutritional Formula (Lactose Free) (Ensure Enlive) 120 ml PO 4X/DAY [facility] Last Admin: 09/30/19 13:28 Dose: Not Given Documented by: Ondansetron HCl (Zofran) 4 mg IV Q8H PRN PRN PRN Reason: NAUSEA/VOMITING Pantoprazole Sodium (Protonix) 40 mg PO DAILY [facility] Last Admin: 09/30/19 09:49 Dose: 40 mg Documented by: Senna/Docusate Sodium (Senokot-S, Sara-Colace) 2 tablet PO BID PRN PRN Reason: Constipation Sodium Chloride () 10 - 40 ml IV UD PRN PRN Reason: SALINE FLUSH Last Admin: 09/29/19 05:52 Dose: 10 ml Documented by: Tamsulosin HCl (Flomax) 0.4 mg PO 1730 [facility] Last Admin: 09/29/19 17:15 Dose: 0.4 mg Documented by: Medical Necessity - Tobacco Use Smoking Status: Current every day smoker Tobacco Use: Pipe Assessment/Plan All Active Problems (Last Updated 07/10/19 @ 08:13 by Scott Barber MD) Acute kidney injury on CKD stage III (Acute) Acute gastroenteritis (Acute) The patient is a 79 year old M with history of coronary artery disease status post PCI stent last one in 2010 and kidney stone is being admitted directly in PCU from [place] [facility] for acute kidney injury. Patient is having diarrhea started about Thursday about 5 days ago, liquid watery consistency every 2-3 hours as per the patient. Patient also had low-grade fever as per the 5 days ago. [] In [place] [facility] his blood pressure was low in triage 87/35 which came up 111/67/61. Heart rate 70/min no hypoxia. EKG shows normal sinus rhythm at 73 bpm with left axis deviation nonspecific intraventricular block. Lab work shows sodium 138, K4.3, chloride 108, bicarb 18, glucose 108, BUN/creatinine 79/5.98, calcium 9.0. H&H 13.7/41, platelet count 222. Chest x-ray 2 views shows no acute cardiopulmonary disease. Tiny 3 mm nodular density in the right upper lobe most likely calcified granuloma. 1. Acute kidney injury, stage III on CKD stage III most likely prerenal but suspicion of ATN: Patient is being admitted in PCU. Patient's prior BUN/creatinine was 22/1.45 in July 09, 2019 and 24/1.79 on July 10. With the associate agent insurance sales Dr. Vieyra. IV fluid half normal saline with bicarb 150 M EQ at 150 mils per hour. Insert Anders catheter for accurate intake and output. UA, urine culture and urine lites ordered. Kidney and bladder ultrasound ordered. Daily electrolytes and kidney function monitoring. Nephrotoxic medications including losartan and Zantac held. Discussed with the pharmacist for dose adjustment. 09/29/2019: Patient had total urine output about 700 mL. Dark urine in Anders catheter. Labs reviewed. UA shows WBC 10-25 cells, RBC 0, bacteria 0 LE 500, nitrite negative. Urine culture is pending. Urine lites urine protein 96, Fena 0.2%. Urine sodium 20, chloride less than 10. BUN/creatinine improved to 87/4.9. Bicarb 24, sodium 140, K3.6. Hypomagnesemia was corrected. Repeat magnesium 1.7. IV fluid changed from bicarb drip to normal saline at 100 mL/h. Monitor intake and output. Sports Marketer going to see the patient. Patient does not have lower urinary tract symptoms of burning micturition/increased frequency urgency. No need for antibiotic. Wait for urine culture. CPK ordered. Renal ultrasound shows hyperechoic renal parenchyma with irregular contour suggestive of nonspecific medical renal disease. No hydronephrosis. Bilateral renal cyst. Largest exophytic cyst about 16 cm in left kidney. 09/30/2019: BUN/creatinine has improved, today 64/3.11. Chloride 116. Urine output 1600 mL yesterday and 2100 mL since 12 AM today. Intake and output +2.8 L. IV fluid decreased to 75 mill per hour. Discussed with the associate agent insurance sales. Needs 1 more day and possible discharge tomorrow a.m. 2. Acute gastroenteritis, exact etiology unclear: Enteric bacteriology panel, stool for C. difficile, stool for occult blood and WBC ordered. IV fluid resuscitation. Patient does not have abdominal pain or tenderness. 09/29/2019: Patient still has bowel movement is more formed and solid. C. difficile is negative. Stool for occult blood negative. Lactoferrin is positive. Enteric bacteriology panel is pending. 09/30/2019: Diarrhea has resolved. Enteric bacteriology panel negative. C. difficile negative. 3. Coronary artery disease status post stents: Patient home medications Plavix, Coreg, statin, atorvastatin and amlodipine continued. Dose of atorvastatin decreased. 09/30/2019: 2D echo reviewed The estimated ejection fraction is 65 %. Normal diastology for age. Trivial tricuspid valve insufficiency. 4. Arrhythmia: Patient has multiple PVCs and one 3 beats of NSVT. 2D echo ordered. Obtain previous echo and other cardiac work-up from patient's salt refiner Dr. Glez. Telemetry reviewed. PVCs frequency has decreased. 4. History of nephrolithiasis/ureteric stone: He was last admitted in June 2019 for right obstructive ureteric stone and had balloon dilatation of right ureter, right ureteroscopy laser of stone and right stent placement. Cipro for 5 days during that. DVT prophylaxis on heparin 5000 subcutaneous twice daily. Advanced directive/CODE STATUS/living will: Patient stated he has living will. When different options were discussed with patient and his including full code, DNR CC arrest and DNR CC, he knows he is DNR CC arrest. Patient does not want artificial life support including intubation, tube feed, ventilator and/chest compression. Microbiology Past 72 Hours 09/28/19 14:50 Urine Catheter - Catheter Urine Culture - Preliminary Staphylococcus aureus 09/28/19 20:50 Stool Enteric Bacteriology - Final 09/28/19 20:50 Stool C. difficile DNA Amplification - Final 09/28/19 20:50 Stool Stool Occult Blood (NORMA) - Final 09/28/19 20:50 Stool Stool Lactoferrin - Final Laboratory Results 09/30/19 06:23: WBC 6.4, RBC 3.55 L, Hgb 10.6 L, Hct 32.0 L, MCV 90.1, MCH 29.9, MCHC 33.1, RDW Std Deviation 44.1 H, RDW Coeff of He 13.2, Plt Count 154, MPV 11.5, Immature Gran % (Auto) 0.500, Neut % (Auto) 68.1, Lymph % (Auto) 20.1, Zavala % (Auto) 7.5, Eos % (Auto) 3.6, Baso % (Auto) 0.2, Absolute Neuts (auto) 4.3, Absolute Lymphs (auto) 1.28, Nucleated RBC % 0 09/30/19 06:23: Sodium 145, Potassium 3.7, Chloride 116 H, Carbon Dioxide 23.0, Anion Gap 6, BUN 64 H, Creatinine 3.11 H, Estim Creat Clear Calc 18.94, Est GFR (MDRD) Af Amer 25 L, Est GFR (MDRD) Non-Af 21 L, BUN/Creatinine Ratio 20.6 H, Glucose 108 H, Calcium 8.5 Clinical Impression(s) from Imaging Studies Renal Ultrasound 09/28/19 14:49 IMPRESSION: Hyperechoic renal parenchyma with irregular contours suggestive of nonspecific medical renal disease. Examples of medical renal disease includes chronic ischemic nephropathy, type 2 diabetes, and NSAID abuse. No hydronephrosis. Bilateral renal cysts. The largest of these, exophytic into the left kidney, measures over 16 cm in long axis dimensions Code Visit Inpatient E&M: 64752 Subs Hosp L2
[2019-09-30] MEDS: Tamsulosin HCl 0.4 MG Capsule PO (16:55)
[2019-09-30] MEDS: Atorvastatin Calcium 40 MG Tablet PO (22:49)
[2019-09-30] MEDS: 0.9% Normal Saline 1,000 ML 75 ML IV (22:54)
[2019-10-01 03:30] VITALS: PULSE 61
[2019-10-01 04:06] VITALS: BP 140/53; PULSE 61; RESP 18; TEMP 36.6; O2SAT 97
[2019-10-01 06:48] VITALS: PULSE 60
[2019-10-01 07:45] VITALS: O2SAT 93
[2019-10-01] MEDS: Cefazolin 1 GM/50 ML BAG IV (08:41)
[2019-10-01] MEDS: Heparin Injection (Vial) 5,000 UNIT/ML VIAL 5000 UNIT SC (08:41)
[2019-10-01] MEDS: Carvedilol 3.125 MG TABLET PO (08:41)
[2019-10-01] MEDS: amLODIPine 5 MG Tablet PO (08:42)
[2019-10-01] MEDS: Pantoprazole Sodium 40 MG Tablet PO (08:42)
[2019-10-01] MEDS: Clopidogrel Bisulfate 75 MG Tablet PO (08:42)
[2019-10-01 09:02] LABS: Absolute Lymphocyte Count 1.64 X10^3/uL (0.83-4.51); Absolute Neutrophil Count 4.6 X10^3/uL (2.0-7.7); Basophil# 0.02 X10^3/uL; Basophil% 0.3 % (0-1); Eosinophil# 0.23 X10^3/uL; Eosinophils% 3.2 % (0-5); Hematocrit 35.7 % (40-54); Hemoglobin 11.6 g/dL (13.0-16.5); Lymphocyte # 1.64 X10^3/ul (4.0); Lymphocyte % 23.2 % (19-41); Mean Corp Hgb Conc 32.5 g/dL (32-36); Mean Corpuscular Hgb 29.9 pg (27.0-32.0); Mean Platelet Vol. 11.5 fl (6.2-12.0); Monocyte# 0.54 X10^3/uL; Monocyte% 7.6 % (0-10); NRBC Flagged by Analyzer 0 % (0-5); Neutrophil # 4.61 X10^3/uL (2.7-7.7); Neutrophil % 65.1 % (47-70); Platelet Count 183 K/mm3 (150-450); RBC Distribution Width CV 13.2 % (11.6-14.6); RBC Distribution Width SD 45.1 fl (35.1-43.9); Red Blood Count 3.88 M/mm3 (4.6-6.2); White Blood Count 7.1 K/mm3 (4.4-11.0)
--- NOTE | 2019-10-01 09:04 | DCINST_ITS ---
- Discharge Diagnoses Current Active Problems: Current Active and Chronic Problems (Last Updated 07/10/19 @ 08:13 by Scott Barber MD) Coronary artery disease (Chronic) Acute kidney injury on CKD stage III (Acute) Acute gastroenteritis (Acute) You will use the following diet at home:: Cardiac Your food should be the consistency of: Regular Discharge Activity: May Not Drive Call your doctor if you observe: Fever of 101 or Higher, Coldness, Increased Pain, Numbness or Tingling, Change in Color, Inability to urinate, Inability to have a bowel movement, Using more than one pad per hour, Shortness of breath, Dizziness, Fainting spells, Swelling in the ankles, Chest pain, Prolonged hiccoughing, Calf discomfort, Uncontrolled pain Allergies/Adverse Reactions: Allergies No Known Allergies Allergy (Verified 07/09/19 23:08) Medications to take at Discharge Amlodipine Besylate [Norvasc] 5 mg PO DAILY 07/09/19 Atorvastatin Calcium [Lipitor] 80 mg PO QHS 07/09/19 Carvedilol [Coreg (Beta Grant)] 3.125 mg PO BID 07/09/19 Clopidogrel Bisulfate [Clopidogrel] 75 mg PO DAILY 07/09/19 Fenofibrate,Micronized [Fenofibrate] 130 mg PO QHS 07/09/19 Metoclopramide [Metoclopramide HCl] 5 mg PO BID 07/09/19 Pantoprazole Sodium [Protonix] 40 mg PO DAILY 07/09/19 Tamsulosin HCl [Flomax] 0.4 mg PO 1700 07/09/19 Cholecalciferol (VIT D3) [Vitamin D3] 1,000 unit PO DAILY 07/11/19 Cefadroxil [Duracef] 500 mg PO BID #10 cap 10/01/19 Losartan Potassium [Cozaar] 100 mg PO DAILY #0 10/01/19 The following prescriptions were given: Cefadroxil [Duracef] 500 mg PO BID #10 cap Transmission Status: Pending to [id number] Primary Care Physician: Curt Garcia MD [Primary Care Provider] - Please follow up with your Primary Care Physician in: IN 1-2 WEEKS with outpatient BMP in 1 week Test Results: Test results from this visit will be discussed in further detail at your follow- up appointment, if applicable. Please Follow Up With: Boy Vieyra MD When: in 2 weeks for MAKI
--- NOTE | 2019-10-01 09:06 | DS.PCM_ITS ---
Discharge Date and Diagnosis Date of Admission: 09/28/19 Date of Discharge: 10/01/19 - Primary Discharge Diagnosis Active and Suspected Problems (Last Updated 07/10/19 @ 08:13 by Scott Barber MD) Acute kidney injury on CKD stage III (Acute) Acute gastroenteritis (Acute) - Secondary Discharge Diagnosis Chronic Problems (Last Updated 07/10/19 @ 08:13 by Scott Barber MD) Kidney stone on right side (Chronic) Coronary artery disease (Chronic) Heart disease (Chronic) Dr Newton Joya [facility] Course and Treatment Summary of Care Provided: [] The patient is a 79 year old M with history of coronary artery disease status post PCI stent last one in 2010 and kidney stone is being admitted directly in PCU from [place] [facility] for acute kidney injury. Patient is having diarrhea started about Thursday about 5 days ago, liquid watery consistency every 2-3 hours as per the patient. Patient also had low-grade fever as per the 5 days ago. [] In [place] ER his blood pressure was low in triage 87/35 which came up 111/67/61. Heart rate 70/min no hypoxia. EKG shows normal sinus rhythm at 73 bpm with left axis deviation nonspecific intraventricular block. Lab work shows sodium 138, K4.3, chloride 108, bicarb 18, glucose 108, BUN/creatinine 79/5.98, calcium 9.0. H&H 13.7/41, platelet count 222. Chest x-ray 2 views shows no acute cardiopulmonary disease. Tiny 3 mm nodular density in the right upper lobe most likely calcified granuloma. 1. Acute kidney injury, stage III on CKD stage III most likely prerenal but suspicion of ATN: Patient is being admitted in PCU. Patient's prior BUN/creatinine was 22/1.45 in July 09, 2019 and 24/1.79 on July 10. With the topline beading machine tender Dr. Vieyra. IV fluid half normal saline with bicarb 150 M EQ at 150 mils per hour. Insert Anders catheter for accurate intake and output. UA, urine culture and urine lites ordered. Kidney and bladder ultrasound ordered. Daily electrolytes and kidney function monitoring. Nephrotoxic medications including losartan and Zantac held. Discussed with the pharmacist for dose adjustment. 09/29/2019: Patient had total urine output about 700 mL. Dark urine in Anders catheter. Labs reviewed. UA shows WBC 10-25 cells, RBC 0, bacteria 0 LE 500, nitrite negative. Urine culture is pending. Urine lites urine protein 96, Fena 0.2%. Urine sodium 20, chloride less than 10. BUN/creatinine improved to 87/4.9. Bicarb 24, sodium 140, K3.6. Hypomagnesemia was corrected. Repeat magnesium 1.7. IV fluid changed from bicarb drip to normal saline at 100 mL/h. Monitor intake and output. Distribution Tech going to see the patient. Patient does not have lower urinary tract symptoms of burning micturition/increased frequency urgency. No need for antibiotic. Wait for urine culture. CPK ordered. Renal ultrasound shows hyperechoic renal parenchyma with irregular contour suggestive of nonspecific medical renal disease. No hydronephrosis. Bilateral renal cyst. Largest exophytic cyst about 16 cm in left kidney. 09/30/2019: BUN/creatinine has improved, today 64/3.11. Chloride 116. Urine output 1600 mL yesterday and 2100 mL since 12 AM today. Intake and output +2.8 L. IV fluid decreased to 75 mill per hour. Discussed with the topline beading machine tender. Needs 1 more day and possible discharge tomorrow a.m. 10/01/2019: Patient had good urine output. Anders catheter was removed yesterday. Patient is discharged. Advised to hold lisinopril for 1 week. 2. Acute gastroenteritis, exact etiology unclear: Enteric bacteriology panel, stool for C. difficile, stool for occult blood and WBC ordered. IV fluid resuscitation. Patient does not have abdominal pain or tenderness. 09/29/2019: Patient still has bowel movement is more formed and solid. C. difficile is negative. Stool for occult blood negative. Lactoferrin is positive. Enteric bacteriology panel is pending. 09/30/2019: Diarrhea has resolved. Enteric bacteriology panel negative. C. difficile negative. 10/01: No acute issues. Diarrhea has resolved. 3. Coronary artery disease status post stents: Patient home medications Plavix, Coreg, statin, atorvastatin and amlodipine continued. Dose of atorvastatin decreased. 09/30/2019: 2D echo reviewed The estimated ejection fraction is 65 %. Normal diastology for age. Trivial tricuspid valve insufficiency. 4. Arrhythmia: Patient has multiple PVCs and one 3 beats of NSVT. 2D echo ordered. Obtain previous echo and other cardiac work-up from patient's sr community manager Dr. Glez. Telemetry reviewed. PVCs frequency has decreased. 4. History of nephrolithiasis/ureteric stone: He was last admitted in June 2019 for right obstructive ureteric stone and had balloon dilatation of right ureter, right ureteroscopy laser of stone and right stent placement. Cipro for 5 days during that. DVT prophylaxis on heparin 5000 subcutaneous twice daily. Advanced directive/CODE STATUS/living will: DNR CC arrest Discharge medication reconciliation done. Discharge follow-up instructions completed. Discharge process discussed with the patient and all questions were answered to patient's satisfaction. Total time spent, exact 35 minutes on discharge meds reconciliation, examination, coordination of care with nurses and ancillary staff, review of imaging and blood test and discussion with the patient on follow-up instructions Microbiology Past 72 Hours 09/28/19 14:50 Urine Catheter - Catheter Urine Culture - Final Staphylococcus aureus 09/28/19 20:50 Stool Enteric Bacteriology - Final 09/28/19 20:50 Stool C. difficile DNA Amplification - Final 09/28/19 20:50 Stool Stool Occult Blood (NORMA) - Final 09/28/19 20:50 Stool Stool Lactoferrin - Final Laboratory Results 10/01/19 08:20: WBC 7.1, RBC 3.88 L, Hgb 11.6 L, Hct 35.7 L, MCV 92.0, MCH 29.9, MCHC 32.5, RDW Std Deviation 45.1 H, RDW Coeff of He 13.2, Plt Count 183, MPV 11.5, Immature Gran % (Auto) 0.600, Neut % (Auto) 65.1, Lymph % (Auto) 23.2, [place] % (Auto) 7.6, Eos % (Auto) 3.2, Baso % (Auto) 0.3, Absolute Neuts (auto) 4.6, Absolute Lymphs (auto) 1.64, Nucleated RBC % 0 10/01/19 08:20: Sodium 146 H, Potassium 4.0, Chloride 117 H, Carbon Dioxide 23.0, Anion Gap 6, BUN 47 H, Creatinine 2.29 H, Estim Creat Clear Calc 25.73, Est GFR (MDRD) Af Amer 36 L, Est GFR (MDRD) Non-Af 29 L, BUN/Creatinine Ratio 20.5 H, Glucose 95, Calcium 9.0 Clinical Impression(s) from Imaging Studies Renal Ultrasound 09/28/19 14:49 IMPRESSION: Hyperechoic renal parenchyma with irregular contours suggestive of nonspecific medical renal disease. Examples of medical renal disease includes chronic ischemic nephropathy, type 2 diabetes, and NSAID abuse. No hydronephrosis. Bilateral renal cysts. The largest of these, exophytic into the left kidney, measures over 16 cm in long axis dimensions Subjective: Seen and examined. No acute overnight issues. Blood pressure is controlled. Patient wants to go home in the morning as he is to attend at about 2 PM in [place]. Objective: Seen and examined. Blood pressure 134/72. Hemodynamically stable. General: Alert, Oriented x3, Cooperative HEENT: Atraumatic, PERRLA, EOMI, Normocephalic Neck: Supple, No JVD, Negative Carotid Bruits Lungs: Clear to auscultation, Normal air movement, No rhonchi, No wheeze, No rales Cardiovascular: Regular rate, Regular Rhythm, Normal S1, Normal S2, No murmurs Abdomen: Bowel Sounds Present, Soft, Non Tender, Non-Distended : Anders catheter removed. Urine output 2700 mL on 09/30 and 1300 mL before Anders catheter removal on 09/30 Extremities: No edema, Capillary Refill Less than 3 Seconds Skin: No rashes, No breakdown Musculoskeletal: No Tenderness to Palpation of Joints or Extremities, Arthritic Changes Neurological: Cranial nerves II-XII grossly intact, Deep Tendon Reflexes 2+/4 and Symmetrical, Neuro grossly intact Psych/Mental Status: Normal Affect, Appropriate - Physical Exam Vitals/I&O's: Vital Signs Temp Pulse Resp BP Pulse Ox 97.9 F 60 18 140/53 H 93 10/01/19 04:06 10/01/19 06:48 10/01/19 04:06 10/01/19 04:06 10/01/19 07:45 Oxygen Delivery Method Room Air Weight: 195 lb 5.273 oz Body Mass Index (BMI) 27.6 Intake and Output for Last 24 Hours 09/29/19 09/30/19 10/01/19 23:59 23:59 23:59 Intake Total 4014.99 / 4014.99 3001.67 / 3001.67 461.25 / 461.25 Output Total 1600 / 2500 2725 / 3425 1325 / 1325 Balance 2414.99 / 1514.99 276.67 / -423.33 -863.75 / -863.75 Microbiology Past 72 Hours 09/28/19 14:50 Urine Catheter - Catheter Urine Culture - Preliminary Staphylococcus aureus 09/28/19 20:50 Stool Enteric Bacteriology - Final 09/28/19 20:50 Stool C. difficile DNA Amplification - Final 09/28/19 20:50 Stool Stool Occult Blood (NORMA) - Final 09/28/19 20:50 Stool Stool Lactoferrin - Final Laboratory Results 10/01/19 08:20: WBC 7.1, RBC 3.88 L, Hgb 11.6 L, Hct 35.7 L, MCV 92.0, MCH 29.9, MCHC 32.5, RDW Std Deviation 45.1 H, RDW Coeff of He 13.2, Plt Count 183, MPV 11.5, Immature Gran % (Auto) 0.600, Neut % (Auto) 65.1, Lymph % (Auto) 23.2, [place] % (Auto) 7.6, Eos % (Auto) 3.2, Baso % (Auto) 0.3, Absolute Neuts (auto) 4.6, Absolute Lymphs (auto) 1.64, Nucleated RBC % 0 10/01/19 08:20: Sodium Pending, Potassium Pending, Chloride Pending, Carbon Dioxide Pending, Anion Gap Pending, BUN Pending, Creatinine Pending, Est GFR (MDRD) Af Amer Pending, Est GFR (MDRD) Non-Af Pending, BUN/Creatinine Ratio Pending, Glucose Pending, Calcium Pending Current Medications Acetaminophen (Tylenol) 650 mg PO Q6H PRN PRN PRN Reason: Pain Score 1-3/Temp > 100.7 F Albuterol Sulfate (Ventolin Aerosols) 2.5 mg INHALATION Q2H PRN PRN PRN Reason: SOB/Wheezing Amlodipine Besylate (Norvasc) 5 mg PO DAILY [facility] Last Admin: 10/01/19 08:42 Dose: 5 mg Documented by: Atorvastatin Calcium (Lipitor) 40 mg PO QHS [facility] Last Admin: 09/30/19 22:49 Dose: 40 mg Documented by: Carvedilol (Coreg) 3.125 mg PO BID [facility] Last Admin: 10/01/19 08:41 Dose: 3.125 mg Documented by: Cholecalciferol (Vitamin D) 1,000 unit PO DAILYCM [facility] Last Admin: 10/01/19 08:41 Dose: 1,000 unit Documented by: Clopidogrel Bisulfate (Plavix) 75 mg PO DAILY [facility] Last Admin: 10/01/19 08:42 Dose: 75 mg Documented by: Glucagon () 1 mg IM .X1 PRN PRN Reason: Hypoglycemia Heparin Sodium (Porcine) (Heparin Na) 5,000 unit SC Q12 [facility] Last Admin: 10/01/19 08:41 Dose: 5,000 unit Documented by: Dextrose (Dextrose 10%-Water) 250 mls @ 999 mls/hr IV .Q16M PRN; Protocol PRN Reason: HYPOGLYCEMIA Sodium Chloride () 1,000 mls @ 75 mls/hr IV .[id number] [facility] Last Infusion: 10/01/19 04:23 Dose: 75 mls/hr Documented by: Cefazolin Sodium () 1 gm in 50 mls @ 100 mls/hr IV Q12 [facility] Last Admin: 10/01/19 08:41 Dose: 100 mls/hr Documented by: Morphine Sulfate () 2 mg IV Q3H PRN PRN PRN Reason: Pain Score 4-10/10 Nitroglycerin (Nitrostat) 0.4 mg SUBLINGUAL Q5M PRN PRN Reason: CARDIAC/CHEST PAIN Nutritional Formula (Lactose Free) (Ensure Enlive) 120 ml PO 4X/DAY [facility] Last Admin: 10/01/19 08:41 Dose: Not Given Documented by: Ondansetron HCl (Zofran) 4 mg IV Q8H PRN PRN PRN Reason: NAUSEA/VOMITING Pantoprazole Sodium (Protonix) 40 mg PO DAILY [facility] Last Admin: 10/01/19 08:42 Dose: 40 mg Documented by: Senna/Docusate Sodium (Senokot-S, Sara-Colace) 2 tablet PO BID PRN PRN Reason: Constipation Sodium Chloride () 10 - 40 ml IV UD PRN PRN Reason: SALINE FLUSH Last Admin: 09/29/19 05:52 Dose: 10 ml Documented by: Tamsulosin HCl (Flomax) 0.4 mg PO 1730 [facility] Last Admin: 09/30/19 16:55 Dose: 0.4 mg Documented by: Discharge Activity: May Not Drive Call your doctor if you observe: Fever of 101 or Higher, Coldness, Increased Pain, Numbness or Tingling, Change in Color, Inability to urinate, Inability to have a bowel movement, Using more than one pad per hour, Shortness of breath, Dizziness, Fainting spells, Swelling in the ankles, Chest pain, Prolonged hiccoughing, Calf discomfort, Uncontrolled pain Home Medications: Medications to take at Discharge Amlodipine Besylate [Norvasc] 5 mg PO DAILY 07/09/19 Atorvastatin Calcium [Lipitor] 80 mg PO QHS 07/09/19 Carvedilol [Coreg (Beta Grant)] 3.125 mg PO BID 07/09/19 Clopidogrel Bisulfate [Clopidogrel] 75 mg PO DAILY 07/09/19 Fenofibrate,Micronized [Fenofibrate] 130 mg PO QHS 07/09/19 Metoclopramide [Metoclopramide HCl] 5 mg PO BID 07/09/19 Pantoprazole Sodium [Protonix] 40 mg PO DAILY 07/09/19 Tamsulosin HCl [Flomax] 0.4 mg PO 1700 07/09/19 Cholecalciferol (VIT D3) [Vitamin D3] 1,000 unit PO DAILY 07/11/19 Cefadroxil [Duracef] 500 mg PO BID #10 cap 10/01/19 Losartan Potassium [Cozaar] 100 mg PO DAILY #0 10/01/19 Following Prescrptions Were Given to Patient: Cefadroxil [Duracef] 500 mg PO BID #10 cap Transmission Status: Received by [employer] [id number] Primary Care Physician: Curt Garcia MD [Primary Care Provider] - Please follow up with your Primary Care Physician in: IN 1-2 WEEKS with outpatient BMP in 1 week Please Follow Up With: Boy Vieyra MD When: in 2 weeks for MAKI Medical Necessity - Tobacco Use Smoking Status: Current every day smoker Tobacco Use: Pipe Meaningful Use Info Meaningful Use Diagnoses (Choose all that apply): None applicable Code Visit Inpatient E&M: 24032 Disch Hosp
[2019-10-01 09:24] LABS: Anion Gap 6 (5-15); BUN 47 mg/dL (7-18); BUN/Creat Ratio 20.5 RATIO (10-20); Chloride 117 mmol/L (98-107); Creatinine, Serum 2.29 mg/dL (0.70-1.30); EST Glomerular Filtration Rate 29 mL/min (>60); Est Glom Filt Rate - Afr Amer 36 mL/min (>60); Estimated Creatinine Clearance 25.73 ml/min; Glucose 95 mg/dL (74-106); Sodium Level 146 mmol/L (136-145)
[2019-10-01 09:45] VITALS: BP 134/72; PULSE 65; RESP 16; TEMP 36.7; O2SAT 96
== END 2019-10-01 10:11 | disposition home or self-care (01) | DRG 683 ==
LOC: ICU 09-29 14:55 → PCU 09-29 16:06
PROVIDERS: Admitting Provider Internal Medicine; Family Provider Student in an Organized Health Care Education/Training Program; PCP Student in an Organized Health Care Education/Training Program; Referring Provider Internal Medicine; Visit Provider Internal Medicine
DX: N17.9 Acute kidney failure, unspecified (principal); I47.2 Ventricular tachycardia; K52.9 Noninfective gastroenteritis and colitis, unspecified; I25.10 Atherosclerotic heart disease of native coronary artery without angina pectoris; N18.3 Chronic kidney disease, stage 3 (moderate); Z66 Do not resuscitate; Z87.442 Personal history of urinary calculi; E83.42 Hypomagnesemia; Z95.5 Presence of coronary angioplasty implant and graft; Z79.02 Long term (current) use of antithrombotics/antiplatelets; I07.1 Rheumatic tricuspid insufficiency; F17.290 Nicotine dependence, other tobacco product, uncomplicated; I12.9 Hypertensive chronic kidney disease with stage 1 through stage 4 chronic kidney disease, or unspecified chronic kidney disease
CPT/HCPCS: 36415; 76770; 80048; 80053; 81001; 82274; 82436; 82550; 82570; 82962; 83605; 83630; 83735; 84100; 84133; 84156; 84300; 84443; 85025; 85610; 87077; 87086; 87088; 87186; 87493; 87506; 93306; 97162; 97802; 99251; 99406; J7030; Q9957; A4216; C8929; G0463